=== PATIENT | male | born 1965 | race Caucasian/White ===

== ENCOUNTER 2020-02-26 17:55 | Outpatient (CLI) | payer MEDICARE, MEDICAID, SELFPAY ==
[2020-02-26 07:46] LABS: Hematocrit 43.2 % (42.0-52.0); Hemoglobin 14.4 g/dL (14.0-18.0); Mean Corpuscular HGB Conc 33.3 g/dl (32-36); Mean Corpuscular Hemoglobin 30.4 pg (26-34); Mean Corpuscular Volume 91.3 fl (80-100); Mean Platelet Volume 8.1 fl (7.4-10.4); Platelet Count Result 229 k/mm3 (150-375); Red Blood Count 4.73 M/mm3 (4.6-6.20); Red Cell Distribution Width 15.3 % (11.5-14.5); White Blood Count 5.5 K/mm3 (4.5-10.0)
[2020-02-26 07:54] LABS: Total Protein Urine Random 10 mg/dL
[2020-02-26 08:03] LABS: Albumin Level 4.2 g/dL (3.5-5.1); Anion Gap 11.7 mmol/L (7-16); Blood Urea Nitrogen 18 mg/dL (9-20); Calcium 8.9 mg/dL (8.4-10.2); Carbon Dioxide 31 mmol/L (22-30); Chloride 96 mmol/L (98-107); Estimated Glomerular Filt Rate 52; Glucose 149 mg/dL (75-110); Phosphorus 3.8 mg/dL (2.5-4.5); Potassium 4.7 mmol/L (3.4-5.0); Sodium 134 mmol/L (137-145)
[2020-02-26 08:04] LABS: Anion Gap 13.7 mmol/L (7-16); Blood Urea Nitrogen 18 mg/dL (9-20); Calcium 8.9 mg/dL (8.4-10.2); Carbon Dioxide 31 mmol/L (22-30); Chloride 96 mmol/L (98-107); Estimated Glomerular Filt Rate 52; Glucose 150 mg/dL (75-110); Potassium 4.7 mmol/L (3.4-5.0); Sodium 136 mmol/L (137-145)
[2020-02-26 08:32] LABS: Parathyroid Intact 68.6 pg/mL (7.5-53.5)
[2020-02-26 08:33] LABS: Prostate Specific Antigen 1.5 ng/mL (< OR = 4.0)
[2020-02-26 10:53] LABS: Vitamin D 25 Hydroxy 31.1 ng/mL
[2020-02-26 19:11] LABS: Hemoglobin A1C 6.4 % (<5.7)
== END 2020-02-26 17:56 | disposition home or self-care (01) ==
PROVIDERS: Family Provider Internal Medicine Cardiovascular Disease; PCP Internal Medicine; Visit Provider Nurse Practitioner
DX: E55.9 Vitamin D deficiency, unspecified (principal); R73.02 Impaired glucose tolerance (oral); I48.91 Unspecified atrial fibrillation; Z12.5 Encounter for screening for malignant neoplasm of prostate; I12.9 Hypertensive chronic kidney disease with stage 1 through stage 4 chronic kidney disease, or unspecified chronic kidney disease; N18.3 Chronic kidney disease, stage 3 (moderate)
CPT/HCPCS: 36415; 80048; 80069; 82040; 82306; 82570; 83036; 83970; 84100; 84153; 84156; 85027; G0103

== ENCOUNTER 2020-04-20 17:08 | Inpatient (IN) | payer MEDICARE, MEDICAID, SELFPAY ==
--- NOTE | ~2020-04-20 | MR_ITS ---
EXAMINATION: MR lumbar spine wo con DATE: 04/22/2020 17:11 INDICATION: Left leg pain and difficulty walking. TECHNIQUE: Magnetic resonance imaging (MRI) of the lumbar spine was performed without intravenous con trast. Sequences included sagittal T2-weighted FSE, sagittal T2-weighted FS FSE, sagittal T1-weighted FSE, and axial T2-weighted FSE. COMPARISON: Lumbar spine radiographs dated 04/08/2015 FINDINGS: 3 mm retrolisthesis L5 on S1. 1-2 mm retrolisthesis L2 on L3. Lumbar vertebral body heights are papo l. Minimal likely physiologic anterior wedging at T12. There are Schmorl's nodes along the inferior e ndplates of L1 and L2. Moderate to severe disc height loss at T11-T12, annular fissure and moderate d isc height loss with associated fibrovascular degenerative endplate changes at L2-L3. Mild to moderat e disc height loss also with annular fissure at L5-S1 and mild disc height loss at L1-L2 and L3-L4. T he conus medullaris terminates at L1. There is normal signal in the caudal spinal cord. Subcutaneous edema posterior to the lumbar spine. Paravertebral soft tissues are otherwise unremarkable. The follo wing disc levels are specifically discussed: T12-L1: Disc is minimally bulging. There is mild bilateral facet joint osteoarthritis. There is no ne ural foraminal stenosis. There is no central canal stenosis. L1-L2: Disc is mildly bulging. There is mild left and moderate right facet joint osteoarthritis. Ther e is no neural foraminal stenosis. There is mild central canal stenosis. L2-L3: Disc is bulging. There is moderate left and mild to moderate right facet joint osteoarthritis. There is mild bilateral neural foraminal stenosis. There is mild to moderate central canal stenosis. L3-L4: Disc is bulging. There is mild to moderate bilateral facet joint osteoarthritis. There is mild bilateral neural foraminal stenosis. There is mild central canal stenosis. L4-L5: Disc is bulging. There is severe bilateral facet joint osteoarthritis. There is mild bilateral neural foraminal stenosis. There is mild central canal stenosis and mild narrowing of the left later al recess. L5-S1: Disc is bulging and there is endplate osteophytes at the left foraminal zone. There is moderat e bilateral facet joint osteoarthritis. There is mild right and moderate left neural foraminal stenos is. There is mild central canal stenosis. IMPRESSION: 1. Moderate lumbar spondylosis with moderate stenosis at the left L5-S1 neural foramen. Reviewed, dictated and finalized at location A.
--- NOTE | ~2020-04-20 | US_ITS ---
EXAMINATION: US venous doppler [facility] DATE: 04/21/2020 14:02 INDICATION: Left thigh pain. TECHNIQUE: Grayscale ultrasound images without and with compression and Doppler ultrasound images of the bilateral lower extremity veins were obtained. COMPARISON: None. FINDINGS: The visualized portions of right common femoral vein, profunda (deep) femoral vein, femoral vein, pop liteal vein, peroneal veins, posterior tibial veins, and greater saphenous vein outflow are patent. The visualized portions of left common femoral vein, profunda femoral vein, femoral vein, popliteal v ein, peroneal veins, posterior tibial veins, and greater saphenous vein outflow are patent. IMPRESSION: 1. No deep venous thrombosis. Reviewed, dictated and finalized at location A.
--- NOTE | ~2020-04-20 | XR_ITS ---
EXAMINATION: XR femur LT min 2V DATE: 04/20/2020 18:34 INDICATION: Lateral left thigh pain and inability to bear weight. TECHNIQUE: Overlapping proximal and distal, AP and lateral views of the left femur were obtained. COMPARISON: None FINDINGS: Alignment is normal. No fracture. Joint spaces appear relatively preserved on nonweightbearing imagi ng. No right knee joint effusion. Multiple ossicles along the distal patellar tendon likely sequela o f prior trauma or childhood Mike-Schlatter's disease. Soft tissues are unremarkable. IMPRESSION: No acute osseous abnormality. Reviewed, dictated and finalized at location A.
--- NOTE | ~2020-04-20 | MR_ITS ---
EXAMINATION: MR femur LT wo con DATE: 04/22/2020 16:51 INDICATION: Left leg pain TECHNIQUE: Magnetic resonance imaging (MRI) of the left thigh/femur was performed without intravenous contrast. Sequences included axial, sagittal and coronal T1-weighted FSE and fluid sensitive FSE STI R. Contralateral right lower leg is included on the coronal images. COMPARISON: Radiographs dated 04/20/2020 FINDINGS: Magnetic field artifact associated with an intramedullary bryan with proximal and distal interlocking s crews along the right femoral diaphysis. Bone marrow signal is normal throughout. No fracture, reacti ve edema or pathologic marrow replacing process. There is symmetric muscle bulk with normal signal th roughout both thighs. Mild osteoarthritis at the left hip without evident left hip joint effusion. Si gnificant spatial distortion at the level of the knees which are too margin of the [id number] not diagnostically evaluated. Neurovascular structures appear unremarkable. No abnormal mass or fluid col lections identified. No pathologically enlarged inguinal lymphadenopathy. IMPRESSION: 1. Incidentally noted internal fixation at the right femur. Otherwise unremarkable study of the left thigh with no etiology identified for reported left thigh pain. Reviewed, dictated and finalized at location A. IMPRESSION: 1. Incidentally noted internal fixation at the right femur. Otherwise unremarka ble study of the left thigh with no etiology identified for reported left thigh pain.
[2020-04-20 17:57] VITALS: BP 138/99; PULSE 70; RESP 17; TEMP 36.6; O2SAT 99
[2020-04-20 20:47] VITALS: BP 153/103; PULSE 65; RESP 17; TEMP 36.6; O2SAT 97
[2020-04-20 22:42] VITALS: BP 151/85; PULSE 64; RESP 22; O2SAT 97
--- NOTE | 2020-04-20 22:48 | ED.LOWEXIN ---
HPI - Extremity Injury (Lower) General Chief Complaint: Extremity Injury, Lower Stated Complaint: left thigh pain Time Seen by Provider: 04/20/20 22:37 Source: patient Mode of arrival: EMS Limitations: no limitations History of Present Illness HPI Narrative: 55 years old white male presents with sudden onset of pain at the lateral side of left thigh, like cramps, 9-hour prior to arrival to the emergency room. Patient denies any trauma, did not take any pain medication because he does not have any at home, patient lives alone, came by ambulance. Patient on Xarelto for atrial fibrillation Patient denies any fever, chills, nausea, vomiting, abdominal pain, chest pain, shortness of breath, back pain. Patient reports pain gets worse if he puts weight on left lower extremity. Related Data Home Medications Medication Instructions Recorded Confirmed ergocalciferol (vitamin D2) 1,250 50,000 unit PO WEEKLY cap 02/20/20 04/08/20 mcg (50,000 unit) capsule famotidine [Pepcid] 40 mg PO BID 04/20/20 Allergies Allergy/AdvReac Type Severity Reaction Status Date / Time Penicillins Allergy Unknown Deadly Verified 04/20/20 23:25 Review of Systems Review of Systems: Narrative: CONSTITUTIONAL: Denies fever, chills, or sweats. EYES: Denies visual changes, redness, or discharge. ENT: Denies rhinorrhea, congestion, sore throat, or otalgia. CARDIOVASCULAR: Denies chest pain, palpitations, or edema. RESPIRATORY: Denies cough or dyspnea. GASTROINTESTINAL: Denies abdominal pain, nausea, vomiting, or diarrhea. GENITOURINARY: Denies dysuria or hematuria. SKIN: Denies rash or itching. MUSCULOSKELETAL: Denies back pain, joint pain, or myalgia. NEUROLOGIC: Denies headache, numbness, or weakness. PSYCHIATRIC: Denies anxiety or depression. [facility] Past Medical History Medical History Absent kidney Arthritis Asthma Atrial fibrillation BMI 45.0-49.9, adult Cancer of kidney Cerebral hemorrhage Chronic low back pain Clear cell carcinoma of right kidney Depressive disorder Essential hypertension History of cardioversion Hypertensive heart disease with heart failure Moderate persistent asthma Morbid obesity Myocardial infarction Post concussion syndrome Rosacea Shortness of breath Sleep apnea Surgical History Surgical History History of arthroplasty of right ankle History of cardiac catheterization History of nephrectomy Family History Family History Mother Family history of cardiovascular disease Patient's mother is in good health Father Family history of congestive heart failure Acute myocardial infarction Sibling Patient's sister is in good health Social History Social History Smoking status: Former smoker (chewed 2 cans a day- smoked 1 pack a week) Smoking end date: 07/24/96 Alcohol intake: current Gender identity (if verbalized by the patient): Male Exam Narrative: Exam Narrative: General appearance: Well-developed, well-nourished Skin: Normal color Head: Normocephalic, nontraumatic Eyes: Clear conjunctiva ENT: Oropharynx normal, ears normal, nose normal Neck: Supple, nontender Chest and respiratory: Airway patent, no respiratory distress, no accessory muscle use Heart: Regular rate/rhythm Abdomen: Soft, nontender, no organomegaly, quiet bowel sounds Vascular: Normal peripheral pulses, normal capillary refill. Musculoskeletal: Normal range of motion, nontender back, diffuse tenderness along the lateral side of left thigh, no bruises, no swelling, no contusion or rash. Neurologic: Alert and oriented ?3, [employer]FF[employer] is normal as tested, no gross motor deficit
[2020-04-20 23:05] VITALS: BP 119/63; PULSE 64; RESP 18; O2SAT 97
[2020-04-20 23:06] LABS: Basophils Absolute Auto 0.1 K/mm3 (0.0-0.1); Basophils Percent Auto 1.2 % (0.2-1.2); Eosinophils Absolute Auto 0.2 K/mm3 (0-0.3); Eosinophils Percent Auto 3.1 % (0-4.4); Hematocrit 42.2 % (42.0-52.0); Hemoglobin 14.4 g/dL (14.0-18.0); Immature Granulocyte Absolute 0.06 K/mm3 (0.00-0.031); Lymphocytes Absolute Auto 1.38 K/mm3 (0.9-3.2); Lymphocytes Percent Auto 23.7 % (18.3-44.2); Mean Corpuscular HGB Conc 34.1 g/dl (32-36); Mean Corpuscular Hemoglobin 31.7 pg (26-34); Mean Platelet Volume 7.8 fl (7.4-10.4); Monocytes Absolute Auto 0.9 K/mm3 (0.1-0.6); Monocytes Percent Auto 16.1 % (2.6-8.5); Neutrophils Absolute Auto 3.2 K/mm3 (1.3-6.7); Neutrophils Percent Auto 54.9 % (45.5-73.1); Platelet Count Result 229 k/mm3 (150-375); Red Blood Count 4.54 M/mm3 (4.6-6.20); Red Cell Distribution Width 14.9 % (11.5-14.5); White Blood Count 5.8 K/mm3 (4.5-10.0)
[2020-04-20 23:21] LABS: Alanine Aminotransferase 50 U/L (4-50); Albumin Level 4.3 g/dL (3.5-5.1); Alkaline Phosphatase 84 U/L (38-126); Anion Gap 11 mmol/L (8-16); Aspartate Amino Transferase 41 U/L (17-59); Bilirubin,Total 1.2 mg/dL (0.2-1.3); Blood Urea Nitrogen 18 mg/dL (9-20); Calcium 9.2 mg/dL (8.4-10.2); Carbon Dioxide 26 mmol/L (22-30); Chloride 99 mmol/L (98-107); Estimated CRCL calculation 99 ml/min; Estimated Glomerular Filt Rate > 60; Glucose 115 mg/dL (75-110); Magnesium 2.1 mg/dL (1.6-2.3); Potassium 4.3 mmol/L (3.4-5.0); Sodium 136 mmol/L (137-145)
[2020-04-21] VITALS (10 sets, daily range): BP systolic 130–150; BP diastolic 73–88; PULSE 59–96; RESP 18–22; TEMP 36.4–36.9; O2SAT 97–99; BMI 48.9
[2020-04-21] MEDS: HYDROcodone/acetaminophen (*CRX) 7.5-325 MG TABLET 1 TAB PO (00:13)
--- NOTE | 2020-04-21 01:45 | ADMGEN ---
This patient, Jack Gates Jr., was admitted to 3 [facility] Surg Room 320-01. Patient/family oriented to hospital policies and general routines including ID bracelet, bed and alarms, visiting hours, pain management, procedures, bathroom and other care routines, personal items, smoking policy, room service/diet, and visiting hours. Valuables list has been completed. Information on how to activate the Rapid Response Team has been discussed. Patient/Family are encouraged to report perceived risks to care and to ask questions if they do not understand what they are told or what they should do.
[2020-04-21] MEDS: AMIODARONE HCL 200 MG TABLET PO (08:40)
[2020-04-21] MEDS: amLODIPine BESYLATE 2.5 MG TABLET PO (08:41)
[2020-04-21] MEDS: FUROSEMIDE 40 MG TABLET PO (08:42)
[2020-04-21] MEDS: carvediloL 3.125 MG TABLET PO ×2 (08:42→20:08)
[2020-04-21] MEDS: RIVAROXABAN 20 MG TABLET PO (10:31)
[2020-04-21] MEDS: MONTELUKAST SODIUM 10 MG TABLET PO (17:08)
[2020-04-21] MEDS: lisinopriL 20 MG TABLET PO (17:08)
[2020-04-21] MEDS: FAMOTIDINE 20 MG TABLET 40 MG PO (17:08)
--- NOTE | 2020-04-21 17:31 | PM.IMHP ---
H&P: HPI History of Present Illness Date/Time: 04/21/20 17:31 Chief complaint: Left thigh pain, unable to manage working Narrative: Jack Gates Jr. is a 55 year old male morbidly obese somewhat mentally challenged he presented emergency department with a complaint left lateral thigh pain for about a 1 day, he states that he was at his granddaughter's birthday democrat he got up from sitting position and felt pain in his left leg he denies any trauma or injury, denies any strain, pain is worse with ambulation he is able to flex and extend his knee and hip, patient is on Xarelto for atrial fibrillation which is taking on a daily basis. he denies any complaint of chest pain or shortness of breath dizziness or palpitation. emergency department patient had x-ray of the left thigh which was negative for any bony injury, to further evaluate patient had a lower extremity venous Doppler is negative for DVT. patient was able to work with physical therapy, will apply warm compresses and monitor overnight Review of Systems Review of Systems: All systems reviewed & are unremarkable except as noted in HPI and below PMFSH Past Medical History Medical History Absent kidney Arthritis Asthma Atrial fibrillation BMI 45.0-49.9, adult Cancer of kidney Cerebral hemorrhage Chronic low back pain Clear cell carcinoma of right kidney Depressive disorder Essential hypertension History of cardioversion Hypertensive heart disease with heart failure Moderate persistent asthma Morbid obesity Myocardial infarction Post concussion syndrome Rosacea Shortness of breath Sleep apnea Surgical History Surgical History History of arthroplasty of right ankle History of cardiac catheterization History of nephrectomy Family History Family History Mother Family history of cardiovascular disease Patient's mother is in good health Father Family history of congestive heart failure Acute myocardial infarction Sibling Patient's sister is in good health Social History Social History (Updated 04/21/20 @ 01:48 by Ronald Bennett RN) Smoking status: Never smoker Second hand tobacco smoke exposure: No Smoking end date: 07/24/96 Alcohol intake: current Drinks per week: 7 Alcohol use details: Max 1 beer per day Substance use: never Substance use type: does not use Living arrangements: alone Occupation/Education: unemployed Gender identity (if verbalized by the patient): Male Sexual Orientation (if Verbalized by the Patient): Straight or Heterosexual Spiritual care concerns: No Agree to blood products: Yes Meds Home Medications and Allergies Home Medications Medication Instructions Recorded Confirmed Type albuterol sulfate 90 mcg/actuation 2 puff INHALATION Q4-6H PRN #8.5 gm 09/18/19 04/21/20 Rx aerosol inhaler carvedilol 3.125 mg tablet 3.125 mg PO Q12H #60 tablet 02/03/20 04/21/20 Rx amiodarone 200 mg tablet 200 mg PO DAILY #30 tablet 02/20/20 04/21/20 Rx amlodipine 2.5 mg tablet 2.5 mg PO DAILY #30 tablet 02/20/20 04/21/20 Rx ergocalciferol (vitamin D2) 1,250 50,000 unit PO WEEKLY cap 02/20/20 04/21/20 History mcg (50,000 unit) capsule metformin 500 mg tablet 500 mg PO DAILY #90 tablet 02/27/20 04/21/20 Rx budesonide-formoterol HFA 160 2 puff INHALATION Q12H #10.2 gm 03/26/20 04/21/20 Rx mcg-4.5 mcg/actuation aerosol inhaler hydrocodone 5 mg-acetaminophen 325 1 tablet PO Q6H PRN #120 tablet 03/31/20 04/21/20 Rx mg tablet famotidine [Pepcid] 40 mg PO QPM 04/20/20 04/21/20 History tramadol 50 mg PO Q4H PRN #20 tablet 04/20/20 Rx Xarelto 20 mg PO DAILY 04/21/20 04/21/20 History furosemide 40 mg PO DAILY 04/21/20 04/21/20 History lisinopril 20 mg PO QPM 04/21/20 04/21/20 History montelukast 10 mg PO QPM 04/21/20 04/21/20 History Allergies
[2020-04-21] MEDS: HYDROcodone/acetaminophen (*CRX) 5-325 MG TABLET 1 TAB PO (23:04)
[2020-04-22] VITALS (9 sets, daily range): BP systolic 118–142; BP diastolic 67–98; PULSE 50–72; RESP 14–22; TEMP 36.2–36.7; O2SAT 96–99
[2020-04-22 07:13] LABS: Basophils Absolute Auto 0.1 K/mm3 (0.0-0.1); Basophils Percent Auto 1.1 % (0.2-1.2); Eosinophils Absolute Auto 0.2 K/mm3 (0-0.3); Eosinophils Percent Auto 3.4 % (0-4.4); Hematocrit 40.6 % (42.0-52.0); Hemoglobin 13.6 g/dL (14.0-18.0); Immature Granulocyte Absolute 0.07 K/mm3 (0.00-0.031); Immature Granulocyte Percent A 1.5 % (0-0.5); Lymphocytes Absolute Auto 1.03 K/mm3 (0.9-3.2); Lymphocytes Percent Auto 22.2 % (18.3-44.2); Mean Corpuscular HGB Conc 33.5 g/dl (32-36); Mean Corpuscular Hemoglobin 31.6 pg (26-34); Mean Corpuscular Volume 94.4 fl (80-100); Mean Platelet Volume 8.4 fl (7.4-10.4); Monocytes Absolute Auto 0.8 K/mm3 (0.1-0.6); Neutrophils Absolute Auto 2.6 K/mm3 (1.3-6.7); Neutrophils Percent Auto 54.8 % (45.5-73.1); Platelet Count Result 223 k/mm3 (150-375); Red Cell Distribution Width 15.2 % (11.5-14.5); White Blood Count 4.7 K/mm3 (4.5-10.0)
[2020-04-22 07:26] LABS: Anion Gap 7 mmol/L (8-16); Blood Urea Nitrogen 20 mg/dL (9-20); Calcium 8.9 mg/dL (8.4-10.2); Carbon Dioxide 32 mmol/L (22-30); Chloride 95 mmol/L (98-107); Estimated CRCL calculation 99 ml/min; Estimated Glomerular Filt Rate > 60; Glucose 117 mg/dL (75-110); Potassium 4.5 mmol/L (3.4-5.0); Sodium 134 mmol/L (137-145)
[2020-04-22] MEDS: RIVAROXABAN 20 MG TABLET PO (08:23)
[2020-04-22] MEDS: amLODIPine BESYLATE 2.5 MG TABLET PO (08:23)
[2020-04-22] MEDS: AMIODARONE HCL 200 MG TABLET PO (08:23)
[2020-04-22] MEDS: ERGOCALCIFEROL 50,000 UNIT CAPSULE 50000 UNITS PO (08:24)
[2020-04-22] MEDS: carvediloL 3.125 MG TABLET PO ×2 (08:24→21:03)
[2020-04-22] MEDS: FUROSEMIDE 40 MG TABLET PO (08:24)
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
[2020-04-22] MEDS: HYDROcodone/acetaminophen (*CRX) 5-325 MG TABLET 1 TAB PO (14:19)
--- NOTE | 2020-04-22 14:23 | PM.IMPN ---
Progress Note: A&P Assessment and Plan (1) Left thigh pain: Code(s): M79.652 - Pain in left thigh Status: Acute Assessment and Plan: 04/22/20 14:23 Jack Gates Jr. is a 55 year old male morbidly obese somewhat mentally challenged he presented emergency department with a complaint left lateral thigh pain for about a 1 day, he states that he was at his granddaughter's birthday constitution party he got up from sitting position and felt pain in his left leg, he denies any trauma or injury, denies any strain, pain is worse with ambulation he is able to flex and extend his knee and hip, patient is on Xarelto for atrial fibrillation which is taking on a daily basis. he denies any complaint of chest pain or shortness of breath dizziness or palpitation. emergency department patient had x-ray of the left thigh which was negative for any bony injury, to further evaluate patient had a lower extremity venous Doppler is negative for DVT. on 04/21 I spoke with patient sister who is a nurse and POA for the patient as patient is MR, stated due to his mental condition patient is a poor historian, Today on 04/22 patient stats pain in the left leg better however he was not able to ambulate more than 10 ft to further evaluate will do MRI of left leg and hip as well as lumbar spine and further recommendations to follow, will increase patient pain medication to help him with pain when ambulating. (2) PAF (paroxysmal atrial fibrillation): Code(s): I48.0 - Paroxysmal atrial fibrillation Status: Acute Assessment and Plan: rate rate is controlled he is on Xarelto (3) Essential hypertension: Code(s): I10 - Essential (primary) hypertension Status: Acute Assessment and Plan: will continue home regimen and monitor Subjective Date/time seen: 04/22/20 14:23 Jack Gates Jr. is a 55 year old male morbidly obese somewhat mentally challenged he presented emergency department with a complaint left lateral thigh pain for about a 1 day, he states that he was at his granddaughter's birthday constitution party he got up from sitting position and felt pain in his left leg, he denies any trauma or injury, denies any strain, pain is worse with ambulation he is able to flex and extend his knee and hip, patient is on Xarelto for atrial fibrillation which is taking on a daily basis. he denies any complaint of chest pain or shortness of breath dizziness or palpitation. emergency department patient had x-ray of the left thigh which was negative for any bony injury, to further evaluate patient had a lower extremity venous Doppler is negative for DVT. on 04/21 I spoke with patient sister who is a nurse and POA for the patient as patient is , stated due to his mental condition patient is a poor historian, Today on 04/22 patient stats pain in the left leg better however he was not able to ambulate more than 10 ft to further evaluate will do MRI of left leg and hip as well as lumbar spine and further recommendations to follow, will increase patient pain medication to help him with pain when ambulating. Review of Systems Review of Systems: All systems reviewed & are unremarkable except as noted in HPI and below Exam Const: General: comfortable and no acute distress HENMT: General nose exam: Normal nares present Eyes: Sclera: sclerae normal Neck: Neck: supple Resp: Effort & Inspection: normal respiratory effort Auscultation: clear to auscultation bilaterally Cardio: Rate: regular rate Rhythm: regular rhythm Skin: General skin exam: normal color and no rashes or lesions noted Neuro: Speech: normal speech Sensory Exam: normal sensation Extrem: General: normal to inspection Other: patient is able to flex and extend his left knee and hip, left thigh on lateral aspect lump his felt, its tender, there is no erythema,or sign of trama, Psych: Affect: Anxious affect present Objective Data Vital Signs Vital Signs: Vital Signs - 24 hr
[2020-04-22] MEDS: HYDROcodone/acetaminophen (*CRX) 5-325 MG TABLET 2 TAB PO ×2 (15:15→23:59)
--- NOTE | 2020-04-22 15:26 | PCOTNOTE ---
Attempted OT evaluation. Per nurse patient is leaving for MRI soon, please hold evaluation until after test completed. Will follow.
--- NOTE | 2020-04-22 16:02 | PC.NURSE ---
to MRI per w/c
[2020-04-22] MEDS: lisinopriL 20 MG TABLET PO (17:15)
[2020-04-22] MEDS: MONTELUKAST SODIUM 10 MG TABLET PO (17:15)
[2020-04-22] MEDS: FAMOTIDINE 20 MG TABLET 40 MG PO (17:15)
--- NOTE | 2020-04-22 17:15 | PC.NURSE ---
patient returned to floor from mri
[2020-04-23 02:00] VITALS: PULSE 54; O2SAT 98
[2020-04-23 05:46] VITALS: BP 116/77; PULSE 52; RESP 20; TEMP 36.7; O2SAT 96
[2020-04-23 06:26] LABS: Hematocrit 39.6 % (42.0-52.0); Hemoglobin 13.7 g/dL (14.0-18.0); Mean Corpuscular HGB Conc 34.6 g/dl (32-36); Mean Corpuscular Hemoglobin 31.5 pg (26-34); Mean Platelet Volume 8.1 fl (7.4-10.4); Platelet Count Result 209 k/mm3 (150-375); Red Blood Count 4.35 M/mm3 (4.6-6.20); Red Cell Distribution Width 14.5 % (11.5-14.5); White Blood Count 5.4 K/mm3 (4.5-10.0)
[2020-04-23 06:41] LABS: Anion Gap 10 mmol/L (8-16); Blood Urea Nitrogen 18 mg/dL (9-20); Calcium 8.4 mg/dL (8.4-10.2); Carbon Dioxide 29 mmol/L (22-30); Chloride 91 mmol/L (98-107); Estimated CRCL calculation 99 ml/min; Estimated Glomerular Filt Rate > 60; Glucose 104 mg/dL (75-110); Potassium 4.6 mmol/L (3.4-5.0); Sodium 130 mmol/L (137-145)
[2020-04-23 08:00] VITALS: PULSE 68; RESP 20; O2SAT 100
[2020-04-23] MEDS: amLODIPine BESYLATE 2.5 MG TABLET PO (10:24)
[2020-04-23] MEDS: carvediloL 3.125 MG TABLET PO (10:24)
[2020-04-23] MEDS: RIVAROXABAN 20 MG TABLET PO (10:24)
[2020-04-23] MEDS: FUROSEMIDE 40 MG TABLET PO (10:25)
[2020-04-23] MEDS: AMIODARONE HCL 200 MG TABLET PO (10:25)
--- NOTE | 2020-04-23 12:34 | PM.DS ---
DS: Admitting Diagnosis Admitting Diagnosis Admitting Diagnosis: Left thigh pain, unable to manage working DS: Discharge Diagnosis Discharge Diagnosis (1) Left thigh pain: Code(s): M79.652 - Pain in left thigh Status: Acute Assessment and Plan: 04/22/20 14:23 Jack Gates Jr. is a 55 year old male morbidly obese somewhat mentally challenged he presented emergency department with a complaint left lateral thigh pain for about a 1 day, he states that he was at his granddaughter's birthday democrat he got up from sitting position and felt pain in his left leg, he denies any trauma or injury, denies any strain, pain is worse with ambulation he is able to flex and extend his knee and hip, patient is on Xarelto for atrial fibrillation which is taking on a daily basis. he denies any complaint of chest pain or shortness of breath dizziness or palpitation. emergency department patient had x-ray of the left thigh which was negative for any bony injury, to further evaluate patient had a lower extremity venous Doppler is negative for DVT. on 04/21 I spoke with patient sister who is a nurse and POA for the patient as patient is MR, stated due to his mental condition patient is a poor historian, Today on 04/22 patient stats pain in the left leg better however he was not able to ambulate more than 10 ft to further evaluate will do MRI of left leg and hip as well as lumbar spine and further recommendations to follow, will increase patient pain medication to help him with pain when ambulating. (2) PAF (paroxysmal atrial fibrillation): Code(s): I48.0 - Paroxysmal atrial fibrillation Status: Acute Assessment and Plan: rate rate is controlled he is on Xarelto (3) Essential hypertension: Code(s): I10 - Essential (primary) hypertension Status: Acute Assessment and Plan: will continue home regimen and monitor DS: Summary Hospital Course Reason for hospitalization: Chief complaint: Left thigh pain, unable to manage working Narrative: Jack Gates Jr. is a 55 year old male morbidly obese somewhat mentally challenged he presented emergency department with a complaint left lateral thigh pain for about a 1 day, he states that he was at his granddaughter's birthday democrat he got up from sitting position and felt pain in his left leg he denies any trauma or injury, denies any strain, pain is worse with ambulation he is able to flex and extend his knee and hip, patient is on Xarelto for atrial fibrillation which is taking on a daily basis. he denies any complaint of chest pain or shortness of breath dizziness or palpitation. emergency department patient had x-ray of the left thigh which was negative for any bony injury, to further evaluate patient had a lower extremity venous Doppler is negative for DVT. patient was able to work with physical therapy, will apply warm compresses and monitor overnight Hospital Course: Jack Gates Jr. is a 55 year old male morbidly obese somewhat mentally challenged he presented emergency department with a complaint left lateral thigh pain for about a 1 day, he states that he was at his granddaughter's birthday democrat he got up from sitting position and felt pain in his left leg, he denies any trauma or injury, denies any strain, pain is worse with ambulation he is able to flex and extend his knee and hip, patient is on Xarelto for atrial fibrillation which is taking on a daily basis. he denies any complaint of chest pain or shortness of breath dizziness or palpitation. emergency department patient had x-ray of the left thigh which was negative for any bony injury, to further evaluate patient had a lower extremity venous Doppler is negative for DVT. on 04/21 I spoke with patient sister who is a nurse and POA for the patient as patient is MR, stated due to his mental condition patient is a poor historian, on 04/22 patient stats pain in the left leg better however he was not able to ambu
[2020-04-23] MEDS: HYDROcodone/acetaminophen (*CRX) 5-325 MG TABLET 2 TAB PO ×2 (13:09→17:24)
[2020-04-23 14:00] VITALS: BP 119/80; PULSE 68; RESP 20; TEMP 36.6; O2SAT 100
[2020-04-23] MEDS: FAMOTIDINE 20 MG TABLET 40 MG PO (17:06)
[2020-04-23] MEDS: lisinopriL 20 MG TABLET PO (17:07)
[2020-04-23] MEDS: MONTELUKAST SODIUM 10 MG TABLET PO (17:08)
== END 2020-04-23 18:01 | disposition home or self-care (01) | DRG 537 ==
LOC: ANHED 04-21 00:09 → ANH3MEDSUR 04-21 00:45
PROVIDERS: Admitting Provider Family Medicine; Emergency Provider Emergency Medicine; PCP Internal Medicine; Visit Provider Family Medicine
DX: S76.112A Strain of left quadriceps muscle, fascia and tendon, initial encounter (principal); Z68.42 Body mass index [BMI] 45.0-49.9, adult; Z23 Encounter for immunization; I11.0 Hypertensive heart disease with heart failure; I50.9 Heart failure, unspecified; I48.0 Paroxysmal atrial fibrillation; E66.01 Morbid (severe) obesity due to excess calories; M19.90 Unspecified osteoarthritis, unspecified site; F32.9 Major depressive disorder, single episode, unspecified; G47.30 Sleep apnea, unspecified; L71.9 Rosacea, unspecified; J45.30 Mild persistent asthma, uncomplicated; M47.896 Other spondylosis, lumbar region; Z96.661 Presence of right artificial ankle joint; F78 Other intellectual disabilities; F07.81 Postconcussional syndrome; Z90.5 Acquired absence of kidney; Z79.01 Long term (current) use of anticoagulants; I25.2 Old myocardial infarction; Z85.528 Personal history of other malignant neoplasm of kidney; Z87.891 Personal history of nicotine dependence; R62.7 Adult failure to thrive; X58.XXXA Exposure to other specified factors, initial encounter
CPT/HCPCS: 36415; 72148; 73552; 73721; 80048; 80053; 83735; 85025; 85027; 90471; 90653; 93970; 94640; 97110; 97116; 97161; 97165; 99285; A9270; G0008; G0378

== ENCOUNTER 2020-05-24 10:36 | Emergency (ER) | payer MEDICARE, MEDICAID, SELFPAY ==
--- NOTE | ~2020-05-24 | US_ITS ---
EXAMINATION: US venous doppler [facility] DATE: 05/24/2020 12:14 INDICATION: Left lower limb pain TECHNIQUE: Gates scale images without and with compression and Doppler images of the left lower extrem ity veins were obtained. COMPARISON: 04/21/2020 FINDINGS: The left common femoral vein, profunda femoral vein, femoral vein, popliteal vein, peroneal trunk, posterior tibial veins, and greater saphenous vein are patent. IMPRESSION: 1. Patent left lower extremity veins. No evidence of deep venous thrombosis. Reviewed, dictated and finalized at location A. ART DIRECTOR
--- NOTE | ~2020-05-24 | CT_ITS ---
EXAMINATION: CT lumbar spine w con DATE: 05/24/2020 13:06 INDICATION: Left leg pain TECHNIQUE: Computed tomography (CT) of the lumbar spine was performed with 100 cc of Omnipaque 350 in travenous contrast. The dose-length product (DLP) was 1524.38 mGy-cm. Iterative reconstruction was us ed. COMPARISON: MRI, 04/22/[address] dated 08/01/2018 FINDINGS: There are 3 mm of stable retrolisthesis L2 on L3 and L5 on S1. There is moderate loss of in tervertebral disc space height at L1-2, L2-3, and L5-S1. The vertebral body heights are normal. There is no fracture. Severe facet osteoarthritis is noted in the lower lumbar spine. The right kidney is surgically absent. No abnormal enhancement is present. IMPRESSION: 1. Moderate lumbar spondylosis without acute findings or significant interval change. Reviewed, dictated and finalized at location A. DENT SERVICES DIRECTOR
[2020-05-24 10:32] VITALS: BP 124/72; PULSE 68; RESP 16; TEMP 36.8; O2SAT 99
[2020-05-24 10:59] VITALS: BP 109/60; PULSE 67; RESP 18; O2SAT 99
--- NOTE | 2020-05-24 11:08 | ED.GENADULT ---
HPI - General Adult General Chief complaint: Extremity Injury, Lower <MERRY Faith Last Filed: 05/24/20 13:57> Stated complaint: thigh pain <MERRY Faith Last Filed: 05/24/20 13:57> Time Seen by Provider: 05/24/20 10:40 <MERRY Faith Last Filed: 05/24/20 13:57> Source: patient and family <MERRY Faith Last Filed: 05/24/20 13:57> Mode of arrival: EMS <MERRY Faith Last Filed: 05/24/20 13:57> Limitations: no limitations <MERRY Faith Last Filed: 05/24/20 13:57> History of Present Illness HPI narrative: Patient is a 55-year-old male who presents with numbness of the left leg with pain to the left thigh has history of chronic pain to the left thigh takes home narcotics managed by primary care denies injury or trauma patient was started on a muscle relaxer that was new yesterday notes that now starting last night he began to have tingling in the leg patient denies any loss of function on arrival is in no distress notes minimal pain denies back pain injury trauma or illness <MERRY Faith Last Filed: 05/24/20 13:57> Related Data Home medications: Home Medications Medication Instructions Recorded Confirmed famotidine [Pepcid] 40 mg PO QPM 04/20/20 05/21/20 Xarelto 20 mg PO DAILY 04/21/20 05/21/20 furosemide 40 mg PO DAILY 04/21/20 05/21/20 lisinopril 20 mg PO QPM 04/21/20 05/21/20 montelukast 10 mg PO QPM 04/21/20 05/21/20 baclofen 20 mg PO DAILY 05/24/20 hydrocodone-acetaminophen 1 tablet PO Q6H 05/24/20 <MERRY Faith Last Filed: 05/24/20 13:57> Allergies/adverse reactions: Allergies Allergy/AdvReac Type Severity Reaction Status Date / Time Penicillins Allergy Unknown Deadly Verified 05/24/20 11:04 <MERRY Faith Last Filed: 05/24/20 13:57> Review of Systems Review of Systems: All systems reviewed & are unremarkable except as noted in HPI and below <Navneet Khan PA-C - Last Filed: 05/24/20 13:57> [facility] Past Medical History Medical History: Medical History (Updated 05/24/20 @ 13:42 by Navneet Khan PA-C) Absent kidney Arthritis Asthma Atrial fibrillation BMI 45.0-49.9, adult Cancer of kidney Cerebral hemorrhage Chronic low back pain Clear cell carcinoma of right kidney Depressive disorder Essential hypertension History of cardioversion Hypertensive heart disease with heart failure Moderate persistent asthma Morbid obesity Myocardial infarction Post concussion syndrome Rosacea Shortness of breath Sleep apnea <Navneet Khan PA-C - Last Filed: 05/24/20 13:57> Surgical History Surgical History: Surgical History History of arthroplasty of right ankle History of cardiac catheterization History of nephrectomy <Navneet Khan PA-C - Last Filed: 05/24/20 13:57> Family History Family History: Family History Mother Family history of cardiovascular disease Patient's mother is in good health Father Family history of congestive heart failure Acute myocardial infarction Sibling Patient's sister is in good health <Navneet Khan PA-C - Last Filed: 05/24/20 13:57> Social History Social History: Social History Smoking status: Former smoker Second hand tobacco smoke exposure: No Smoking end date: 07/24/96 Alcohol intake: current Drinks per week: 7 Substance use: never Substance use type: does not use Gender identity (if verbalized by the patient): Male Spiritual care concerns: No Agree to blood products: Yes <Navneet Khna PA-C - Last Filed: 05/24/20 13:57> Exam Narrative: Exam Narrative: GENERAL: Well-appearing, obese, and in no acute distress. HEAD: Normocephalic, atraumatic. EYES: PERRLA and EOMI. ENT: N
[2020-05-24 11:13] LABS: Basophils Absolute Auto 0.1 K/mm3 (0.0-0.1); Basophils Percent Auto 1.1 % (0.2-1.2); Eosinophils Absolute Auto 0.2 K/mm3 (0-0.3); Eosinophils Percent Auto 2.6 % (0-4.4); Hematocrit 43.1 % (42.0-52.0); Hemoglobin 14.7 g/dL (14.0-18.0); Immature Granulocyte Absolute 0.09 K/mm3 (0.00-0.031); Immature Granulocyte Percent A 1.6 % (0-0.5); Lymphocytes Absolute Auto 1.45 K/mm3 (0.9-3.2); Lymphocytes Percent Auto 25.6 % (18.3-44.2); Mean Corpuscular HGB Conc 34.1 g/dl (32-36); Mean Corpuscular Hemoglobin 31.7 pg (26-34); Mean Corpuscular Volume 92.9 fl (80-100); Mean Platelet Volume 9.5 fl (7.4-10.4); Monocytes Percent Auto 18.2 % (2.6-8.5); Neutrophils Absolute Auto 2.9 K/mm3 (1.3-6.7); Neutrophils Percent Auto 50.9 % (45.5-73.1); Platelet Count Result 319 k/mm3 (150-375); Red Blood Count 4.64 M/mm3 (4.6-6.20); Red Cell Distribution Width 14.2 % (11.5-14.5); White Blood Count 5.7 K/mm3 (4.5-10.0)
[2020-05-24 12:33] LABS: Anion Gap 7 mmol/L (8-16); Blood Urea Nitrogen 26 mg/dL (9-20); CRP 1.9 mg/dL (<1.0); Calcium 9.2 mg/dL (8.4-10.2); Carbon Dioxide 29 mmol/L (22-30); Chloride 101 mmol/L (98-107); Estimated CRCL calculation 83 ml/min; Estimated Glomerular Filt Rate 52; Glucose 115 mg/dL (75-110); Potassium 4.7 mmol/L (3.4-5.0); Sodium 137 mmol/L (137-145)
[2020-05-24] MEDS: SODIUM CHLORIDE 0.9% IV 1,000 ML 999 ML IV CONT (13:42)
[2020-05-24 14:03] VITALS: BP 128/68; PULSE 68; RESP 14; O2SAT 98
== END 2020-05-24 15:05 | disposition home or self-care (01) ==
PROVIDERS: Emergency Medicine Emergency Medical Services; Emergency Provider General Practice; PCP Internal Medicine
DX: I48.91 Unspecified atrial fibrillation (principal); E66.01 Morbid (severe) obesity due to excess calories; Z68.42 Body mass index [BMI] 45.0-49.9, adult; I25.10 Atherosclerotic heart disease of native coronary artery without angina pectoris; G47.30 Sleep apnea, unspecified; I11.0 Hypertensive heart disease with heart failure; I50.9 Heart failure, unspecified; J45.20 Mild intermittent asthma, uncomplicated; Z79.01 Long term (current) use of anticoagulants; Z85.528 Personal history of other malignant neoplasm of kidney
CPT/HCPCS: 36415; 72132; 80048; 85025; 86140; 93971; 96365; 99284; J0131; J7030; Q9967

== ENCOUNTER → 2020-06-04 17:57 | Outpatient (CLI) | payer MEDICARE, MEDICAID, SELFPAY ==
--- NOTE | ~2020-06-04 | MR_ITS ---
EXAMINATION: MR lumbar spine wo con DATE: 06/04/2020 18:50 INDICATION: Low back pain. Anesthesia of skin. TECHNIQUE: Magnetic resonance imaging (MRI) of the lumbar spine was performed without intravenous con trast. Sequences included sagittal T2-weighted FSE, sagittal T2-weighted FS FSE, sagittal T1-weighted FSE, and axial T2-weighted FSE. COMPARISON: Lumbar spine MRI 04/22/2020, CT 05/24/2020 FINDINGS: There is 4 degrees levocurvature of thoracolumbar spine. There are Schmorl's nodes from T12 -L1 through L2-L3. There is moderately decreased disc height at L2-L3, mildly decreased disc height a t L3-L4, and severely decreased disc height at L5-S1. The distal spinal cord signal intensity is norm al. The conus medullaris is at L1. The following disc levels are specifically discussed: L1-L2: The disc is mildly bulging. There is mild bilateral facet joint osteoarthritis. There is mild bilateral neural foraminal stenosis. There is mild central canal stenosis. L2-L3: The disc is bulging as an annular fissure. There is moderate right and mild left facet joint o steoarthritis. There is mild bilateral neural foraminal stenosis. There is mild central canal stenosi s. L3-L4: The disc is bulging and has an annular fissure. There is mild bilateral facet joint osteoarthr itis. There is mild bilateral neural foraminal stenosis. There is mild central canal stenosis. L4-L5: The disc is bulging. There is severe bilateral facet joint osteoarthritis. There is mild bilat eral neural foraminal stenosis. There is mild central canal stenosis. L5-S1: The disc is bulging and has an annular fissure. There is moderate right and mild left facet priti int osteoarthritis. There is mild right and moderate left neural foraminal stenosis. There is mild ce ntral canal stenosis. IMPRESSION: 1. Severe lumbar spondylosis, stable from 04/22/2020. Reviewed, dictated and finalized at location A. ZZA ARCHITECT
== END ==
PROVIDERS: PCP Internal Medicine; Visit Provider Internal Medicine
DX: M79.652 Pain in left thigh (principal); R20.0 Anesthesia of skin; M47.896 Other spondylosis, lumbar region
CPT/HCPCS: 72148

== ENCOUNTER 2020-07-15 09:30 | Outpatient (RCR) | payer MEDICARE, MEDICAID, SELFPAY ==
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
--- NOTE | 2020-06-24 10:41 | PTOPEVAL ---
PHYSICAL THERAPY RE-EVALUATION AND UPDATED PLAN OF CARE 06-24-2020 Refer to the clinical summary below, for comparison from today to the initial evaluation. PT is to continue treatment 2x/week for 3 weeks. Thank you for referring Jack Espinoza Kody Garcia to [facility].? Please review, sign, date and return this updated plan of care [facility]. I agree with and certify that the following plan of care is medically necessary. Referring Physician Date Attending Provider: Serafin Mathis DO *PT Outpatient Re-Evaluation Document 06/24/20 10:00 ANN (Rec: 06/24/20 10:41 ANN [id number]) Subjective Information Jack states: have improved; Query Text:As Reported By Patient/ pain still hits and leg cramps Family - not sure why, can be just laying in bed not doing anything; do the exercises sometimes, they seem to help some; today is first time not using the wheeled walker and using the cane; Pain Assessment Timing of Pain Assessment Timing of Pain Assessment Assessment Pain Scale Pain Scale Used Numeric (1 - 10) Self Report Pain Assessment Right Hip(s) Reported Pain Level 3 Radicular Pain Location posterior hip and low back-- throbbing Pain Frequency Chronic,Continuous Left Leg(s) Reported Pain Level 2 Pain Frequency Acute,Continuous Lowest Pain Intensity 2 Greatest Pain Intensity 8 Other Pain Aggravating Factors with sleeping awaken 1x/night due to pain Pain Score Pain Score 3,2: Self Report Interventions Used Interventions Used By Clinicians Exercise Pain Relief Interventions Used By Heat,Ice,Inactivity/Rest, Patient Medication,Position Change Cervical and Lumbar ROM Lumbar ROM Lumbar Comments standing trunk flexion- hands to knees- tight in R hip; extension WNL- tightens up in back; side bend to R Pinch on R side back/L no issues Lower Extremity Range of Motion General Lower Extremity Range of Motion Gross Lower Extremity Range of Motion supine: hamstring stretch with Comments SLR R 50'/ L 45'; increase pain with L hip flexion and IR motions, in anterior thigh; Lower Extremity Muscle Strength Testing General Lower Extremity Strength Gross Lower Extremity Strength supine L LE: SLR x 25 reps; bridge x 25 reps; supine/sit indep without pain; Posture Posture Standing Position
--- NOTE | 2020-07-15 09:57 | PTOPEVAL ---
PHYSICAL THERAPY DISCHARGE 07-15-2020 Refer to the clinical summary below for his comparison to the last reevaluation. The goals were achieved except walking distance with 2 minute walk test and L hip IR increase pain and decreased ROM. Thank you for referring Jack Espinoza Kody Garcia to [facility].? Please review, sign, date and return this discharge KRYSTIN. I agree with and certify that the following plan of care is medically necessary. Referring Physician Date Attending Provider: Serafin Mathis DO *PT Outpatient Discharge Document 07/15/20 09:20 ANN (Rec: 07/15/20 09:57 ANN [id number]) Subjective Information Jack reports: back does not Query Text:As Reported By Patient/ hurt; pain in L knee- take Family pain pill before bedtime to sleep due to knee pain; sleep good- do not wake up from pain; use cane when go out, but not in my apartment; at home, is doing all of his usual things; doing his exercises at home; Pain Assessment Timing of Pain Assessment Timing of Pain Assessment Assessment Self Report Self Report Pain Level 0 Pain Score Pain Score 0: Self Report Additional Pain Score Comments pain in L knee 1-6/10; Lower Extremity Range of Motion General Lower Extremity Range of Motion Gross Lower Extremity Range of Motion supine: hamstring stretch/ SLR Comments R & L 60'; supine R hip flexion to 100', IR 15', ER--without pain supine L hip flexion 100', IR 5'- increase pain and ER- without pain Lower Extremity Muscle Strength Testing General Lower Extremity Strength Gross Lower Extremity Strength functional strength: standing with 1 UE support: R & L: hip abduction, hip flexion, knee flexion x 20 reps; Transfer Assessment Bed Transfer Assessment Sit to Stand Bed Transfer Ability Independent Chair Transfer Assessment Sit to Stand Chair Transfer Ability Independent Gait Assessment 2 Minute Walk Total Distance Walked (feet) 325 2 Minute Walk Gait Speed Score (feet/ 2.70 second) Number of Breaks Required 0 2 Minute Walk Test Comments with cane; wide base of support, decreased WB on L LE; Safety Assessment Patient Safety Factors Affecting Safety No Concerns Rehab Teaching Rehab Teaching Teaching Topic Rehab Teaching Topic Components Exercise,Home Program As Pertains To Plan of Care Discus
== END 2020-07-16 07:18 | disposition home or self-care (01) ==
LOC: ANHPT 09:30
PROVIDERS: PCP Internal Medicine; Referring Provider Internal Medicine; Visit Provider Internal Medicine
DX: M79.652 Pain in left thigh (principal)
CPT/HCPCS: 97110; 97140; 97161

== ENCOUNTER 2021-03-01 06:49 | Outpatient (CLI) | payer MEDICARE, MEDICAID, SELFPAY ==
[2021-03-01 07:28] LABS: Total Protein Urine Random 10 mg/dL
[2021-03-01 07:30] LABS: Anion Gap 7 mmol/L (8-16); Blood Urea Nitrogen 14 mg/dL (9-20); Calcium 9.5 mg/dL (8.4-10.2); Carbon Dioxide 25 mmol/L (22-30); Chloride 102 mmol/L (98-107); Estimated Glomerular Filt Rate > 60; Glucose 119 mg/dL (65-110); Phosphorus 4.2 mg/dL (2.5-4.5); Sodium 134 mmol/L (137-145)
[2021-03-01 07:31] LABS: Alanine Aminotransferase 113 U/L (4-50); Alkaline Phosphatase 84 U/L (38-126); Anion Gap 8 mmol/L (8-16); Aspartate Amino Transferase 86 U/L (17-59); Bilirubin,Total 1.2 mg/dL (0.2-1.3); Blood Urea Nitrogen 13 mg/dL (9-20); Calcium 9.4 mg/dL (8.4-10.2); Carbon Dioxide 26 mmol/L (22-30); Chloride 98 mmol/L (98-107); Cholesterol 178 mg/dL (0-200); Estimated Glomerular Filt Rate > 60; Glucose 118 mg/dL (65-110); HDL Direct 35 mg/dL; Potassium 4.9 mmol/L (3.4-5.0); Sodium 132 mmol/L (137-145); Triglycerides 103 mg/dL (<150)
[2021-03-01 07:42] LABS: LDL Cholesterol Direct 108 mg/dL
[2021-03-01 08:18] LABS: Prostate Specific Antigen 0.5 ng/mL (< OR = 4.0)
[2021-03-01 17:53] LABS: Creatinine Urine 140.2 mg/dL; Ur Ttl Prot Creatinine Ratio 0.07 mg/mg (0-0.20)
== END 2021-03-01 06:50 | disposition home or self-care (01) ==
PROVIDERS: PCP Internal Medicine; Visit Provider Internal Medicine Nephrology
DX: E78.5 Hyperlipidemia, unspecified (principal); N18.30 Chronic kidney disease, stage 3 unspecified; Z12.5 Encounter for screening for malignant neoplasm of prostate; I10 Essential (primary) hypertension
CPT/HCPCS: 36415; 80053; 80061; 80069; 81050; 82570; 84153; 84156; G0103

== ENCOUNTER 2021-05-21 09:00 | Outpatient (RCR) | payer MEDICARE, MEDICAID, SELFPAY ==
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
--- NOTE | 2021-05-21 09:39 | PTOPEVAL ---
PHYSICAL THERAPY DISCHARGE 05-21-21 Refer to the clinical summary below for his status today compared to the initial evaluation. The goals were met and he will be discharged from PT at this time. Thank you for referring Jack Espinoza Kody Garcia to [facility].? Please review, sign, date and return this Discharge KRYSTIN. I agree with and certify that the following plan of care is medically necessary. Referring Physician Date Attending Provider: Serafin Mathis, document 05/21/21 09:00 ANN (Rec: 05/21/21 09:39 ANN [id number]) Assessment Status Discharge Subjective Information Jack reports: have lost 12# Query Text:As Reported By Patient/ in the past month; continue to Family go to gym and do exercises- water exercises, ride bike; doing better and agrees to discharge from PT; Pain Assessment Timing of Pain Assessment Timing of Pain Assessment Assessment Pain Scale Pain Scale Used Numeric (1 - 10) Self Report Pain Assessment Left Thigh(s) Reported Pain Level 0 Pain Frequency Chronic,Intermittent Lowest Pain Intensity 0 Greatest Pain Intensity 4 Pain Score Pain Score 0: Self Report Additional Pain Score Comments knee pain rating 3/10, wearing knee velcro compression brace and it helps stability and pain Interventions Used Interventions Used By Clinicians Education,Exercise Lower Extremity Range of Motion General Lower Extremity Range of Motion Gross Lower Extremity Range of Motion supine hamstring flexibiilty Comments with SLR: R 70'/ L 70' without pain supine L hip flexion, IR and ER ranges without an increase in pain Lower Extremity Muscle Strength Testing General Lower Extremity Strength Gross Lower Extremity Strength - standing: B PF, R and L hip abduction, hip flexion, hip extension with 1 UE hold x 20 reps; - supine L SLR x 47 reps; - leg press B 120# x 20 reps; verbal review of HEP: continues to perform 1-2 x/day , walking outside for fitness 2-3 x/day; going to fitness center for water exercises and weight equipment; Posture Posture Standing Position Posture Evaluation View Posterior Head/C-Spine Posture Forward Head Thoracic Spine Posture Fl
== END 2021-05-24 17:38 | disposition home or self-care (01) ==
LOC: ANHPT 09:00
PROVIDERS: PCP Internal Medicine; Visit Provider Internal Medicine
DX: M79.652 Pain in left thigh (principal)
CPT/HCPCS: 97014; 97110; 97161; G0283

== ENCOUNTER 2021-07-25 06:49 | Emergency (ER) | payer MEDICARE, MEDICAID, SELFPAY ==
--- NOTE | ~2021-07-25 | XR_ITS ---
EXAMINATION: XR hip LT 2V w AP pelvis EXAM DATE: 07/25/2021 07:33 INDICATION: Fall, left hip pain. TECHNIQUE: Left hip frontal, 'frog leg' projections for interpretation. Compare Comparison is made to prior examination from 04/20/2020. FINDINGS: Smooth left hip femoral head contour, no radiographic evidence of avascular necrosis. Ther e are no acute hip or pelvic fractures or dislocations identified. There is no subcutaneous gas. Th e soft tissue is unremarkable. There is right hip intramedullary bryan. There is mild to moderate josiane ateral hip primary osteoarthritis. IMPRESSION: 1. XR hip LT 2V w AP pelvis exam without acute osseous findings. Reviewed, dictated and finalized at location A. CIATE MERCHANDISE PLANNER
--- NOTE | ~2021-07-25 | CT_ITS ---
EXAMINATION: CT brain wo con EXAM DATE: 07/25/2021 07:30 INDICATION: Fall, head injury. TECHNIQUE: Spiral CT of the head was performed without contrast. Axial, coronal and sagittal images were reviewed. The dose-length product (DLP) for this examination was 681.00 mGy-cm. The exposure w as tailored according to patient size, and iterative reconstruction (ASIR) was used as additional dos e reduction technique. Comparison is made to prior examination from 01/20/2019. FINDINGS: There is right frontal subcortical white matter encephalomalacia inferiorly as previously s een, chronic finding unchanged. Location could indicate that it developed from old posttraumatic etio logy. There is mild cerebral atrophy. There is no acute intraparenchymal hemorrhage. No evidence of intraparenchymal brain mass lesion. No evidence of acute infarction. There is no mass effect or mid line shift. The ventricles are normal in size. There are no extra-axial collections. There are no acute calvarial fractures. The orbits are unremarkable. Soft tissue is unremarkable. The visualized sinuses and mastoid air cells are well aerated. There is no significant interval change. IMPRESSION: 1. No acute intracranial findings. 2. Right frontal lobe encephalomalacia. Reviewed, dictated and finalized at location A. E PAINTER
[2021-07-25 06:54] VITALS: BP 108/56; PULSE 64; RESP 18; TEMP 36.6; O2SAT 98
[2021-07-25 07:03] VITALS: PULSE 52
--- NOTE | 2021-07-25 07:26 | ED.FALL ---
HPI - Fall General Chief Complaint: Fall Stated Complaint: left leg pain Time Seen by Provider: 07/25/21 07:01 Source: RN notes reviewed History of Present Illness HPI Narrative: Patient presents emergency department from home for a fall. Patient states approximately 4 AM this morning he woke he is he is falling out of bed states he landed on his left side with his cane across his left thigh he states that he has been having pain in the left hip and leg since that time with difficulty walking he denies striking his head but is on Xarelto he denies any knee or ankle pain he denies any chest pain shortness of breath abdominal pain or any other symptoms. Patient states he took a hydrocodone at 515 this morning Related Data Home Medications Medication Instructions Recorded Confirmed cholecalciferol (vitamin D3) 50 50 mcg PO WEEKLY cap 03/05/21 03/05/21 mcg (2,000 unit) capsule Allergies Allergy/AdvReac Type Severity Reaction Status Date / Time Penicillins Allergy Unknown Deadly Verified 03/05/21 15:54 aspirin AdvReac Nausea Verified 07/25/21 07:00 Review of Systems Review of Systems: Gen.: Denies fevers or chills Eyes: Denies eye pain or visual change ENT: Denies facial pain Respiratory: Denies shortness of breath CV: Denies chest pain GI: Denies abdominal pain nausea, emesis Musculoskeletal: See HPI Neuro: Denies numbness, tingling, weakness or focal weakness Skin: Denies rash Except as documented, all other systems reviewed and negative PMFSH Past Medical History Medical History (Updated 07/25/21 @ 08:16 by Guido Kumar DO) Absent kidney Arthritis Asthma Atrial fibrillation BMI 45.0-49.9, adult Cancer of kidney Cerebral hemorrhage Chronic low back pain Clear cell carcinoma of right kidney Depressive disorder Essential hypertension History of cardioversion Hypertensive heart disease with heart failure Moderate persistent asthma Morbid obesity Myocardial infarction Post concussion syndrome Rosacea Shortness of breath Sleep apnea Surgical History Surgical History History of arthroplasty of right ankle History of cardiac catheterization History of nephrectomy Family History Family History Mother Family history of cardiovascular disease Patient's mother is in good health Father Family history of congestive heart failure Acute myocardial infarction Sibling Patient's sister is in good health Social History Social History Smoking status: Former smoker Second hand tobacco smoke exposure: No Smoking end date: 07/24/96 Alcohol intake: current Drinks per week: 7 Alcohol use details: Max 1 beer per day Substance use: never Substance use type: does not use Gender identity (if verbalized by the patient): Male Sexual Orientation (if Verbalized by the Patient): Straight or Heterosexual Spiritual care concerns: No Agree to blood products: Yes Exam Narrative: APPEARANCE: No acute distress, nontoxic, resting in bed EYES: EOMI HEENT: Normocephalic, atraumatic, OMM Neck: Supple nontender palpation RESPIRATORY: No respiratory distress Clear to auscultation bilaterally with no rhonchi wheezing or rales. CARDIOVASCULAR: Regular rate and rhythm without murmurs rubs or gallops. ABDOMINAL: Soft, nontender, nondistended, no rebound or guarding MUSCULOSKELETAl: Moves all extremities. No clubbing, cyanosis or edema. Tender to palpation left lateral and anterior hip pain with flexion abduction greater than 45 degrees no tenderness left knee or ankle dorsalis pedis pulse 2+ neurovascular intact NEURO: Awake and alert. Following commands, speech normal, no focal deficits SKIN:: Warm, dry. No rashes lesions or abrasions PSYCHIATRIC: Normal affect/mood, Course Course Emergency Course: Patient able to get up an
[2021-07-25 08:28] VITALS: BP 104/70; PULSE 50; RESP 17; O2SAT 99
== END 2021-07-25 08:28 | disposition home or self-care (01) ==
PROVIDERS: Emergency Provider Emergency Medicine; PCP Internal Medicine
DX: S70.02XA Contusion of left hip, initial encounter (principal); J45.40 Moderate persistent asthma, uncomplicated; I11.0 Hypertensive heart disease with heart failure; I50.9 Heart failure, unspecified; E66.01 Morbid (severe) obesity due to excess calories; I25.2 Old myocardial infarction; G47.30 Sleep apnea, unspecified; M19.90 Unspecified osteoarthritis, unspecified site; Z85.528 Personal history of other malignant neoplasm of kidney; Z90.5 Acquired absence of kidney; Z87.891 Personal history of nicotine dependence; G93.89 Other specified disorders of brain; W06.XXXA Fall from bed, initial encounter
CPT/HCPCS: 70450; 73502; 99284

== ENCOUNTER 2022-08-03 06:34 | Outpatient (CLI) | payer MEDICARE, MEDICAID, SELFPAY ==
[2022-08-03 07:45] LABS: Alanine Aminotransferase 28 U/L (6-50); Albumin Level 4.2 g/dL (3.5-5.1); Alkaline Phosphatase 88 U/L (38-126); Anion Gap 7 mmol/L (8-16); Aspartate Amino Transferase 30 U/L (17-59); Blood Urea Nitrogen 22 mg/dL (9-20); Calcium 8.3 mg/dL (8.4-10.2); Carbon Dioxide 28 mmol/L (22-30); Chloride 106 mmol/L (98-107); Cholesterol 183 mg/dL (0-200); Estimated Glomerular Filt Rate 52; Glucose 125 mg/dL (65-110); HDL Direct 35 mg/dL; Potassium 4.2 mmol/L (3.4-5.0); Sodium 141 mmol/L (137-145); Triglycerides 88 mg/dL (<150)
[2022-08-03 07:56] LABS: LDL Cholesterol Direct 99 mg/dL
[2022-08-03 08:14] LABS: Prostate Specific Antigen 0.6 ng/mL (< OR = 4.0)
[2022-08-03 08:25] LABS: Free T4 Free Thyroxine 1.29 ng/mL (0.78-2.19); Vitamin D 25 Hydroxy 29.6 ng/mL
== END 2022-08-03 06:35 | disposition home or self-care (01) ==
PROVIDERS: PCP Internal Medicine; Visit Provider Nurse Practitioner
DX: E55.9 Vitamin D deficiency, unspecified (principal); Z79.899 Other long term (current) drug therapy; Z13.220 Encounter for screening for lipoid disorders; Z12.5 Encounter for screening for malignant neoplasm of prostate; I12.9 Hypertensive chronic kidney disease with stage 1 through stage 4 chronic kidney disease, or unspecified chronic kidney disease; N18.31 Chronic kidney disease, stage 3a
CPT/HCPCS: 36415; 80053; 80061; 82306; 84153; 84439; 84443; G0103

== ENCOUNTER 2022-08-25 12:20 | Outpatient (CLI) | payer MEDICARE, MEDICAID, SELFPAY ==
[2022-08-25 13:21] LABS: Hemoglobin A1C 5.4 % (<5.7)
== END 2022-08-25 12:21 | disposition home or self-care (01) ==
PROVIDERS: PCP Internal Medicine; Visit Provider Nurse Practitioner
DX: R73.9 Hyperglycemia, unspecified (principal)
CPT/HCPCS: 36415; 80307; 83036

== ENCOUNTER 2022-09-07 14:39 | Outpatient (CLI) | payer MEDICARE, MEDICAID, SELFPAY ==
[2022-09-09 10:37] LABS: PCP NEGATIVE ng/mL (<25)
[2022-09-13 11:18] LABS: Amphetamines Negative; Barbiturates Negative; Benzodiazepines Negative; Cocaine Metabolites Negative; Marijuana Metabolites Negative
== END 2022-09-07 14:40 | disposition home or self-care (01) ==
PROVIDERS: PCP Internal Medicine; Visit Provider Internal Medicine
DX: Z79.899 Other long term (current) drug therapy (principal)
CPT/HCPCS: 80307

== ENCOUNTER 2023-01-09 14:40 | Outpatient (CLI) | payer MEDICARE, MEDICAID, SELFPAY ==
[2023-01-09 19:21] LABS: Alanine Aminotransferase 35 U/L (6-50); Albumin Level 4.7 g/dL (3.5-5.1); Alkaline Phosphatase 75 U/L (38-126); Anion Gap 8 mmol/L (8-16); Aspartate Amino Transferase 49 U/L (17-59); Bilirubin,Total 1.9 mg/dL (0.2-1.3); Blood Urea Nitrogen 25 mg/dL (9-20); Calcium 8.8 mg/dL (8.4-10.2); Carbon Dioxide 29 mmol/L (22-30); Chloride 98 mmol/L (98-107); Estimated Glomerular Filt Rate 57; Glucose 103 mg/dL (65-110); Phosphorus 3.8 mg/dL (2.5-4.5); Potassium 4.4 mmol/L (3.4-5.0); Sodium 135 mmol/L (137-145)
[2023-01-11 17:23] LABS: Amphetamines NEGATIVE ng/mL (<500); Barbiturates NEGATIVE ng/mL (<300); Benzodiazepines NEGATIVE ng/mL (<100); Cocaine Metabolite NEGATIVE ng/mL (<150); Marijuana Metabolite NEGATIVE ng/mL (<20); Methadone Metabolite NEGATIVE ng/mL (<100); Opiates POSITIVE ng/mL (<100); Oxidant NEGATIVE mcg/mL (<200); pH 7.4 (4.5-9.0)
== END 2023-01-09 14:41 | disposition home or self-care (01) ==
LOC: ANHGOSHLAB 14:42
PROVIDERS: Nurse Practitioner Family; PCP Anesthesiology Pain Medicine; Visit Provider Anesthesiology Pain Medicine
DX: I13.10 Hypertensive heart and chronic kidney disease without heart failure, with stage 1 through stage 4 chronic kidney disease, or unspecified chronic kidney disease (principal); N18.30 Chronic kidney disease, stage 3 unspecified; Z79.891 Long term (current) use of opiate analgesic; G89.4 Chronic pain syndrome
CPT/HCPCS: 36415; 80053; 80307; 84100

== ENCOUNTER 2023-02-15 15:05 | Outpatient (RCR) | payer MEDICARE, MEDICAID, SELFPAY ==
--- NOTE | 2023-01-17 09:55 | PCPTNOTE ---
Patient did not show up for scheduled initial evaluation this date.
--- NOTE | 2023-02-16 16:56 | PTOPEVAL1 ---
Assessment and note entered by Germain Delcid, PT Evaluation Information Subjective Information Patient comes to the clinic with his sister. Sister asks to come back to the gym to be present during the evaluation as patient will forget things the the sister wants to make sure the physical therapist gets the whole picture of the patient. Patient has history of TBI along with short term memory issues and other significant medical history seen above. Patient has had increased pain in the L hip/thigh since Dr. Mathis retired and they were seeing another MD, but sister states that MD , a doctor Keiry, was crazy and just left. Currently being seen by a pain specialist that wants to do therapy and possibility of injections which patient and family wants to hold off on because he is on a blood thinner secondary to a diagnosis of A-Fib and are worried about hematomas. Patient main cause of pain is getting in and out of chair. (his lift chair is currently broken). Patient also has pain with walking. He does go to do exercises in the pool and uses the Nust[facility] at the [facility]. Patient shows me his card where he fills out his heart rate after doing Nustep. Patient is currently using a straight cane that appears too short for him. Patient and sister reports he also has another cane, a wheeled walker, a standard walker. Patient reports he prefers the standard walker to the wheeled walker because it is more stable, but it really slows down how he walks. Patient states he is missing part of the cane top on his other cane and sister reports patient keeps equipment and other objects because he has attachment to them even though he probably shouldn't 't use them. Patient reports falls mainly with going up and down steps to get onto the bus to the [facility]. Patient and sister also state patient is fairly sedentary at his home Patient does take 1- 2 extra seconds to answer physical therapist, but sister does not report that as remarkable. Reported Pain Level Pain Score 3: Self Report Assessment PT Clinical Summary Ari is a 58 year old male coming into the clinic with back and L hip pain. The patient demonstrates lower extremity tightness on both side more on the left side along with pain with manual muscle testing. Patient at end of session after talking about exercises and plan of care is according to the
== END 2023-02-17 07:37 | disposition home or self-care (01) ==
LOC: ANHPT 15:05
PROVIDERS: PCP Anesthesiology Pain Medicine; Visit Provider Anesthesiology Pain Medicine
DX: M54.9 Dorsalgia, unspecified (principal); M25.559 Pain in unspecified hip
CPT/HCPCS: 97161

== ENCOUNTER 2023-02-15 16:39 | Emergency (ER) | payer MEDICARE, MEDICAID, SELFPAY ==
[2023-02-15] VITALS (8 sets, daily range): BP systolic 134–152; BP diastolic 88–96; PULSE 61–64; RESP 15–18; TEMP 37.3; O2SAT 96–100
--- NOTE | ~2023-02-15 | CT_ITS ---
EXAMINATION: CT chest abdomen pelvis wo con DATE: 02/15/2023 17:38 CDT INDICATION: Metastatic disease. TECHNIQUE: Computed tomography (CT) of the chest, abdomen, and pelvis was performed with 100 cc Omnip aque 350 intravenous contrast. The dose-length product was 2167.05 mGy-cm. Automated exposure control and iterative reconstruction technique were employed. COMPARISON: CT dated 08/01/2018 FINDINGS: CHEST CT: No significant pleural or pericardial effusion. Heart size normal. No thoracic lymphadenopathy. No fabian spicious pulmonary nodules or masses. There is lingular atelectasis. There are are bilateral lung opa cities in the lingula, nonspecific. No endobronchial lesions. No pneumothorax. ABDOMEN/PELVIS CT: There are multiple ventral abdominal wall hernias containing fat. There are gallstones. The liver, sp alex, pancreas, adrenal glands and left kidney are unremarkable. The right kidney is not identified, possibly surgically absent. No significant vascular abnormality. There is a fat-containing right ingu inal hernia. There is a dynamic compression screw with intramedullary bryan in the right femur. No susp icious lytic or blastic lesions. Moderate lower thoracic and lumbar spondylosis. IMPRESSION: 1. No evidence for metastatic disease. 2: Cholelithiasis. 3: Multiple ventral abdominal wall hernias containing fat. 4: Groundglass opacities of the lingula, nonspecific. Consider infectious/inflammatory etiologies as well as small airway disease. Reviewed, dictated and finalized at location A. IMPRESSION: 1. No evidence for metastatic disease. 2: Cholelithiasis. 3: Multiple ventral abdominal wall hernias containing fat. 4: Groundglass opacities of the lingula, nonspecific. Consider infectious/infl ammatory etiologies as well as small airway disease.
--- NOTE | ~2023-02-15 | CT_ITS ---
EXAMINATION: CTA brain carotid DATE: 02/15/2023 17:56 CDT INDICATION: Left-sided weakness. Possible mass. TECHNIQUE: Computed tomographic angiography (CTA) of the head was performed with 100 mL Omnipaque-350 intravenous contrast. CTA of the neck was performed with intravenous contrast. The dose-length produ ct was 1234.74 mGy-cm. Maximum intensity projection and volume rendered 3D-reconstructions were creat ed by the technologist on a separate workstation. Automated exposure control and iterative reconstruc tion technique were employed. COMPARISON: CT dated 02/15/2023 and 07/25/2021. FINDINGS: HEAD CTA: There is chronic right frontal lobe infarction. There is an enhancing mass which appears to be involving the right lateral ventricle, occipital horn with feeding vessels extending to the choro id plexus. There is mass effect with surrounding vasogenic edema and midline shift to the left. There is effacement of the right lateral ventricle. The enhancing mass is less likely extraventricular cau sing mass effect on the ventricle. There is mild intracranial atherosclerosis without significant shannan nosis, occlusion, aneurysm or vascular anomaly. There are dominant vertebral arteries. NECK CTA: There is mediastinal lipomatosis. No abnormality of the thyroid gland. There is medial cour se to the common carotid arteries bilaterally. No significant vascular abnormality of the head or nec k. No cervical lymphadenopathy. There is less than 10% stenosis of the proximal right internal carotid artery relative to normal dist al artery lumen diameter (NASCET criteria). There is less than 10% stenosis of the proximal left inte rnal carotid artery relative to normal distal artery lumen diameter. IMPRESSION: 1.: Enhancing mass of the right posterior parietal location which appears to be intraventricular rath er than extraventricular causing effacement of the ventricle. This mass measures 8.9 cm AP x3.7 cm tr ansverse x4.1 cm craniocaudal. There is significant surrounding vasogenic edema causing mass effect w ith effacement of the overlying cortical sulci in right to left midline shift. Differential diagnosis includes metastatic disease, meningioma, choroid plexus papilloma, subependymoma giant cell astrocyt [place], choroid plexus carcinoma and ependymoma. 2: No significant vascular abnormality of the head or neck. Reviewed, dictated and finalized at location A. IMPRESSION: 1.: Enhancing mass of the right posterior parietal location which appears to be intraventricular rather than extraventricular causing effacement of the ventri arianne. This mass measures 8.9 cm AP x3.7 cm transverse x4.1 cm craniocaudal. Ther e is significant surrounding vasogenic edema causing mass effect with effacemen t of the overlying cortical sulci in right to left midline shift. Differential diagnosis includes metastatic disease, meningioma, choroid plexus papilloma, fabian bependymoma giant cell astrocytoma, choroid plexus carcinoma and ependymoma. 2: No significant vascular abnormality of the head or neck.
--- NOTE | ~2023-02-15 | XR_ITS ---
XR chest 1V 02/15/2023 17:37 Indication: CVA. Procedure: AP view of the chest Comparison: Comparison to multiple prior studies sequentially, with oldest reviewed study dated 06/23. Findings: Cardiomegaly. No focal air space disease, pulmonary edema, pleural effusion or suspected pn eumothorax. Impression: 1: No acute cardiopulmonary disease. Reviewed, dictated and finalized at location A. Impression: 1: No acute cardiopulmonary disease.
--- NOTE | ~2023-02-15 | CT_ITS ---
EXAMINATION: CT brain wo con DATE: 02/15/2023 16:41 INDICATION: Left-sided weakness TECHNIQUE: Computed tomography (CT) of the head was performed without intravenous contrast. The dose- length product was 681.00 mGy-cm. Automated exposure control and iterative reconstruction technique w ere employed. COMPARISON: CT dated 07/25/2021 FINDINGS: There is patchy geographic areas of hypovascularity in the right hemisphere involving the r ight parietal and temporal lobes with mass effect. There is effacement of the overlying cortical sulc i with midline shift to the left. There is a chronic right frontal lobe infarction. No ventriculomega ly. Basilar cisterns are patent. Paranasal sinuses and mastoids are pneumatized. No depressed skull f ractures. No intracranial hemorrhage is identified. Midline sagittal images demonstrate a normal gianna us callosum and craniovertebral junction. IMPRESSION: 1. Large areas of geographic hypodensity in the right parietal and temporal lobes, suspicious for met astatic disease with associated vasogenic edema. Infarction less favored. Recommend correlation with contrast-enhanced CT. There is associated mass effect with effacement of the overlying cortical sulci midline shift to the left. As per stroke protocol, I called these results to emergency room, discussed with Dr. Raymond hardin MD at 02/15/2023 16:49 CDT. Reviewed, dictated and finalized at location A. IMPRESSION: 1. Large areas of geographic hypodensity in the right parietal and temporal lob es, suspicious for metastatic disease with associated vasogenic edema. Infarcti on less favored. Recommend correlation with contrast-enhanced CT. There is asso ciated mass effect with effacement of the overlying cortical sulci midline shif t to the left. As per stroke protocol, I called these results to emergency room, discussed wit h Dr. Raymond Kramer MD at 02/15/2023 16:49 CDT.
--- NOTE | 2023-02-15 16:57 | ECG_ITS ---
Measurements Intervals [address] Rate: 58 P: 57 MI: 176 QRS: -15 QRSD: 103 T: 13 QT: 432 QTc: 426 Interpretive Statements SINUS BRADYCARDIA LOW QRS VOLTAGE IN PRECORDIAL LEADS CANNOT RULE OUT SEPTAL INFARCT, AGE INDETERMINATE BORDERLINE T WAVE ABNORMALITY- INFERIOR LEADS BASELINE ARTIFACT- I, II, III, AVR, AVL ,AVF, V1-V3 ABNORMAL ECG NO PREVIOUS ECG AVAILABLE FOR COMPARISON Electronically Signed On 02-16-2023 8:24:26 CDT by Placido Murray D.O.
--- NOTE | 2023-02-15 16:58 | PC.NURSE ---
Sister states she is the guardian and makes all decisions. Pt is A&Ox4.
[2023-02-15 17:05] LABS: Basophils Absolute Auto 0.1 K/mm3 (0.0-0.1); Basophils Percent Auto 0.9 % (0.2-1.2); Eosinophils Absolute Auto 0.1 K/mm3 (0-0.3); Eosinophils Percent Auto 2.2 % (0-4.4); Hematocrit 44.2 % (42.0-52.0); Hemoglobin 14.9 g/dL (14.0-18.0); Immature Granulocyte Absolute 0.04 K/mm3 (0.00-0.031); Immature Granulocyte Percent A 0.7 % (0-0.5); Lymphocytes Absolute Auto 1.19 K/mm3 (0.9-3.2); Lymphocytes Percent Auto 20.2 % (18.3-44.2); Mean Corpuscular HGB Conc 33.7 g/dl (32-36); Mean Corpuscular Hemoglobin 30.3 pg (26-34); Mean Corpuscular Volume 89.8 fl (80-100); Mean Platelet Volume 7.9 fl (7.4-10.4); Monocytes Absolute Auto 0.9 K/mm3 (0.1-0.6); Monocytes Percent Auto 15.3 % (2.6-8.5); Neutrophils Absolute Auto 3.6 K/mm3 (1.3-6.7); Neutrophils Percent Auto 60.7 % (45.5-73.1); Platelet Count Result 217 k/mm3 (150-375); Red Blood Count 4.92 M/mm3 (4.6-6.20); Red Cell Distribution Width 14.4 % (11.5-14.5); White Blood Count 5.9 K/mm3 (4.5-10.0)
[2023-02-15 17:13] LABS: Alanine Aminotransferase 33 U/L (6-50); Albumin Level 4.5 g/dL (3.5-5.1); Alkaline Phosphatase 82 U/L (38-126); Anion Gap 7 mmol/L (8-16); Aspartate Amino Transferase 40 U/L (17-59); Bilirubin,Total 1.4 mg/dL (0.2-1.3); Blood Urea Nitrogen 17 mg/dL (9-20); Calcium 9.1 mg/dL (8.4-10.2); Carbon Dioxide 30 mmol/L (22-30); Chloride 100 mmol/L (98-107); Estimated Glomerular Filt Rate > 60; Ethanol < 10 mg/dL (<10); Glucose 104 mg/dL (65-110); Potassium 4.1 mmol/L (3.4-5.0); Sodium 137 mmol/L (137-145)
[2023-02-15 17:17] LABS: INR 1.5; Prothrombin Time 18.6 Seconds (11.1-14.7)
--- NOTE | 2023-02-15 17:47 | ED.NEUROSD ---
HPI - Neuro Symptoms/Deficit General Chief Complaint: Suspected CVA Stated Complaint: code stroke History of Present Illness HPI Narrative: This is a 58-year-old male, with past medical history of kidney cancer status post nephrectomy, A-fib on Xarelto, who presents emergency department as a code stroke with left-sided deficits. The patient's last known well was 3 PM today, he was at an appointment, when he had sudden onset loss of vision in the left eye and left upper extremity weakness. His sister called the EMS. Initial stroke score in the field was 0. On my evaluation, the patient complained of vision loss in the left eye but had no other complaints Related Data Home Medications Medication Instructions Recorded Confirmed cholecalciferol (vitamin D3) 50 50 mcg PO WEEKLY 03/05/21 01/09/23 mcg (2,000 unit) capsule furosemide 40 mg tablet 20 mg .Route .COMPLEX 09/01/22 01/09/23 Allergies Allergy/AdvReac Type Severity Reaction Status Date / Time Penicillins Allergy Unknown Deadly Verified 12/21/22 11:38 aspirin AdvReac Nausea Verified 12/21/22 11:38 Review of Systems Review of Systems: CONSTITUTIONAL: Denies fever, chills, or sweats. EYES: Left visual field loss Denies visual changes, redness, or discharge. ENT: Denies rhinorrhea, congestion, sore throat, or otalgia. CARDIOVASCULAR: Denies chest pain, palpitations, or edema. RESPIRATORY: Denies cough or dyspnea. GASTROINTESTINAL: Denies abdominal pain, nausea, vomiting, or diarrhea. GENITOURINARY: Denies dysuria or hematuria. SKIN: Denies rash or itching. MUSCULOSKELETAL: Denies back pain, joint pain, or myalgia. NEUROLOGIC: Left upper and lower extremity weakness denies headache, numbness, dizziness PSYCHIATRIC: Denies anxiety or depression. [facility] Past Medical History Medical History Absent kidney Arthritis Asthma Atrial fibrillation BMI 45.0-49.9, adult Cancer of kidney Cerebral hemorrhage Chronic low back pain Clear cell carcinoma of right kidney Depressive disorder Essential hypertension Fall with injury History of cardioversion Hypertensive heart disease with heart failure Moderate persistent asthma Morbid obesity Myocardial infarction Post concussion syndrome Rosacea Shortness of breath Sleep apnea Surgical History Surgical History History of arthroplasty of right ankle History of cardiac catheterization History of nephrectomy Family History Family History Mother Family history of cardiovascular disease Patient's mother is in good health Father Family history of congestive heart failure Acute myocardial infarction Sibling Patient's sister is in good health Social History Social History Smoking status: Former smoker Tobacco type: smokeless tobacco Smokeless tobacco user: chewing tobacco Second hand tobacco smoke exposure: No Smoking end date: 07/24/96 Alcohol intake: current Drinks per week: 2 Alcohol use details: rarely Substance use: never Substance use type: does not use Lack of Transportation: No Lack of Food: Never True Current Housing: I Have Housing Concerned About Future Housing: No Difficulty Paying Gas/Electric Bills: No Difficulty Paying for Meds: No Currently Unemployed: No Education: Trade/Vocational Certificate Difficulty w/ Childcare or Family Care: No Living arrangements: alone Occupation/Education: unemployed Gender identity (if verbalized by the patient): Male Sexual Orientation (if Verbalized by the Patient): Straight or Heterosexual Spiritual care concerns: No Agree to blood products: Yes Exam Narrative: GENERAL: Well-developed, well-nourished, and in no acute distress. HEAD: Normocephalic, atraumatic. EYES: PERRLA and EOMI.
--- NOTE | 2023-02-15 18:55 | PC.NURSE ---
Report called to Kallie BURNETTE
[2023-02-15] MEDS: ACETAMINOPHEN 500 MG TABLET 1000 MG PO (19:25)
[2023-02-16 09:08] LABS: Glucose Point of Care 120 mg/dl (65-105)
== END 2023-02-15 19:43 | disposition short-term general hospital (02) ==
PROVIDERS: Emergency Provider Preventive Medicine Aerospace Medicine; PCP Anesthesiology Pain Medicine
DX: G93.89 Other specified disorders of brain (principal); H54.62 Unqualified visual loss, left eye, normal vision right eye; I25.2 Old myocardial infarction; I11.0 Hypertensive heart disease with heart failure; I50.9 Heart failure, unspecified; I48.91 Unspecified atrial fibrillation; J45.40 Moderate persistent asthma, uncomplicated; M19.90 Unspecified osteoarthritis, unspecified site; G47.30 Sleep apnea, unspecified; F32.A Depression, unspecified; Z87.891 Personal history of nicotine dependence; Z85.528 Personal history of other malignant neoplasm of kidney; Z90.5 Acquired absence of kidney; R00.1 Bradycardia, unspecified; Z79.01 Long term (current) use of anticoagulants; Z79.899 Other long term (current) drug therapy; Z79.51 Long term (current) use of inhaled steroids; R94.31 Abnormal electrocardiogram [ECG] [EKG]
CPT/HCPCS: 36415; 70450; 70496; 70498; 71045; 71250; 74176; 80053; 80307; 82948; 85025; 85610; 93005; 96365; 96375; 99285; A9270; J1100; Q9967

== ENCOUNTER 2023-02-27 09:40 | Outpatient (CLI) | payer MEDICARE, MEDICAID, SELFPAY ==
--- NOTE | 2023-02-27 10:07 | ECHO_ITS ---
Patient Info Name: Jack Gates Age: 58 years : 1965 Gender: Male Ht: 73 in Wt: 318 lbs BSA: 2.79 m2 HR: 50 bpm BP: 116 / 79 mmHg Heart Rhythm: Bradycardia Technical Quality: Fair Exam Date: 02/27/2023 10:15 AM Exam Location: [facility] Pulmonary Patient Status: Outpatient Admit Date: 02/27/2023 Staff Ordering Physician: Placido Murray DO Manufacturing Process Technician: Nelli Chavarria RDCS Attending Provider: Placido Murray DO Referring Physician: Trevor DELATORRE; Exam Type: CA echo doppler color flow Study Info Indications - Unspecified diastolic (congestive) heart failure Complete two-dimensional, color flow and Doppler transthoracic echocardiogram is performed. Summary 1. Complete two-dimensional, color flow and Doppler transthoracic echocardiogram is performed. 2. Left ventricular chamber dimension is normal. 3. Left ventricular systolic function is normal, estimated at 60-65%. 4. The left ventricular diastolic function is grade I diastolic dysfunction. 5. E/e' 9 is minimally elevated. 6. There is mild aortic valve sclerosis. 7. No pulmonary hypertension, estimated pulmonary arterial systolic pressure is 22 mmHg. Left Ventricle E/e' 9 is minimally elevated. Left ventricular chamber dimension is normal. Left ventricular systolic function is normal, estimated at 60-65%. The left ventricular diastolic function is grade I diastolic dysfunction. Right Ventricle Right ventricular systolic function is normal and with normal TAPSE 2.6 cm. Right ventricular chamber dimension is normal. Left Atria Left atrial chamber dimension is normal. Right Atria Right atrial chamber dimension is normal. Aortic Valve The aortic valve is trileaflet. There is mild aortic valve sclerosis. There is no aortic valve stenosis. There is no aortic valve regurgitation. Pulmonic Valve There is no pulmonic regurgitation. Mitral Valve There is no mitral valve stenosis. There is no mitral valve regurgitation. Tricuspid Valve There is no tricuspid valve regurgitation. No pulmonary hypertension, estimated pulmonary arterial systolic pressure is 22 mmHg. Pericardium/Pleural There is no pericardial effusion. Inferior Vena Cava Normal inferior vena cava with >50% collapse upon inspiration consistent with normal right atrial pressure, 5 mmHg. Aorta The aortic root size at the sinus of Valsalva is normal. Left Ventricular Outflow Tract Name Value Normal LVOT 2D LVOT Diameter 2.0 cm LVOT Doppler LVOT Peak Gradient 5 mmHg LVOT Mean Gradient 2 mmHg LVOT VTI 20 cm LVOT VTI/AV VTI Ratio 0.7 LVOT Stroke Volume 64 ml LVOT CO 2.9 l/min LVOT CI 1.0 l/min/m2 Pulmonic Valve Name Value Normal RVOT Doppler RVOT Peak Gradient 3 mmHg PV Doppl
== END 2023-02-27 09:41 | disposition home or self-care (01) ==
PROVIDERS: PCP Family Medicine; Visit Provider Internal Medicine Cardiovascular Disease
DX: I50.30 Unspecified diastolic (congestive) heart failure (principal)
CPT/HCPCS: 93306

== ENCOUNTER 2023-03-16 14:55 | Inpatient (IN) | payer MEDICARE, MEDICAID, SELFPAY ==
[2023-03-16] VITALS (12 sets, daily range): BP systolic 111–157; BP diastolic 45–89; PULSE 52–67; RESP 12–19; TEMP 36.3–37.1; O2SAT 96–100; BMI 39.1
--- NOTE | ~2023-03-16 | CT_ITS ---
EXAMINATION: CT brain wo con INDICATION: Transient alteration of awareness, discharged yesterday from outside hospital after treat ment for glioblastoma. COMPARISON: 02/15/2023 TECHNIQUE: Standard unenhanced head CT. The dose-length product (DLP) was 681.00 mGy-cm. The mA was a djusted according to patient size. Iterative reconstruction technique was employed. FINDINGS: There are encephalomalacia and a tumor resection cavity in the right frontal, temporal, par ietal, and occipital lobes, consistent with treatment for glioblastoma. A small amount of encephaloma lacia anteriorly in the right frontal lobe may reflect prior infarction. There are changes of interva l right temporal craniotomy with an underlying subacute appearing subdural hematoma. In addition, the re are tiny foci of associated extra-axial gas There is mild periventricular and subcortical hypodens ity probably related to small vessel ischemic disease. There is mild prominence of the sulci and vent ricles related to cerebral atrophy. Intracranial calcified cerebral atherosclerosis is noted. No extr a-axial collections. There are 4 mm of [id number]-pyem midline shift. The orbits and soft tissues are u nremarkable. The visualized sinuses and mastoid air cells are well aerated. IMPRESSION: 1. Changes in the right frontal, temporal, parietal, and occipital lobes, consistent with interval tr eatment for glioblastoma. A small subacute appearing right-sided subdural hematoma and associated gas also likely reflect resolving postoperative surgical change. 2. Age related findings. Reviewed, dictated and finalized at location A. IMPRESSION: 1. Changes in the right frontal, temporal, parietal, and occipital lobes, consi stent with interval treatment for glioblastoma. A small subacute appearing righ t-sided subdural hematoma and associated gas also likely reflect resolving post operative surgical change. 2. Age related findings.
--- NOTE | ~2023-03-16 | XR_ITS ---
XR chest 1V 03/16/2023 16:25 Indication: Abnormal heartbeat Procedure: AP view of the chest Comparison: Comparison to multiple prior studies sequentially, with oldest reviewed study dated 10/09. Findings: Cardiomegaly. No focal air space disease, pulmonary edema, pleural effusion or suspected pn eumothorax. No acute osseous abnormality. Impression: 1: No acute cardiopulmonary disease. Reviewed, dictated and finalized at location L. Impression: 1: No acute cardiopulmonary disease.
--- NOTE | 2023-03-16 15:54 | ECG_ITS ---
Measurements Intervals [place] Rate: 55 P: 114 MT: 192 QRS: -7 QRSD: 109 T: 26 QT: 439 QTc: 420 Interpretive Statements SINUS BRADYCARDIA LOW QRS VOLTAGE IN PRECORDIAL LEADS [QRS DEFLECTION < 1.0 mV IN CHEST LEADS] POSSIBLE ANTERIOR MYOCARDIAL INFARCTION , OF INDETERMINATE AGE [30 ms Q WAVE IN V3/V4, OR R < 0.2 mV IN V4] ABNORMAL ECG COMPARED TO ECG 02/15/2023 16:57:36 SLIGHTLY DIFFERENT PRECORDIAL LEAD POSITION Electronically Signed On 03-17-2023 14:39:11 CDT by Manohar Hobbs M.D.
--- NOTE | 2023-03-16 16:01 | ED.ARRPALP ---
HPI - Arrhythmia/Palpitations General Chief Complaint: Arrhythmia/Palpitations Stated Complaint: palpatations Time Seen by Provider: 03/16/23 15:15 Source: patient and family (Sister who is the DPOA and guardian) History of Present Illness HPI narrative: Patient is a 58-year-old male presenting to the emergency department with his sister who is the patient's guardian and [employer]URABLE POWER OF [employer]LEY STRIPPER via EMS from his primary care physician office however this was the first appointment with the primary care physician in which patient experienced lightheadedness with an associated sensation of his heart pausing. Sister notes that she also evaluated the pulse at the time and did experience it when the patient was noting that sensation that her sister also felt his heart rate was. Patient does have a known history of A-fib and is on carvedilol and no new changes to medications. Sister notes that the patient was just discharged from the hospital yesterday after a long inpatient and rehabilitation stay for a new diagnosis of glioblastoma and he is status postcraniotomy and this was the first follow-up appointment. This occurred at approximately 2 PM in which his sister noticed that the patient appeared near syncopal and had a few episodes of this and then they lowered him to the ground, the patient did not fully pass out, sister is unsure if the patient hit his head, patient denies any further sensation of his heart stopping or lightheadedness since coming to the emergency department. Sister states the patient does not have the staff that he requires for home health care. Sister notes that the patient is not informed of his diagnosis of glioblastoma. Sister notes that the patient typically has left upper and left lower extremity weakness when compared to the right and also has chronic visual field deficits. Sister reports patient is globally more weak in all limbs compared to his baseline. Patient denies difficulty urinating, dysuria, urinary urgency, urinary frequency, hematuria, melena, hematochezia, diarrhea, constipation, chest pain, shortness of breath, difficulty swallowing, dysphonia, vision changes, nausea, vomiting. MD complaint: skipped beats Duration: now resolved Context: occurred during exertion (post walking) Arrhythmia history: atrial fibrillation and on anti-coagulants Associated symptoms: near-syncope and muscle cramps Related Data Home Medications Medication Instructions Recorded Confirmed cholecalciferol (vitamin D3) 50 50 mcg PO WEEKLY 03/05/21 01/09/23 mcg (2,000 unit) capsule furosemide 40 mg tablet 20 mg .Route .COMPLEX 09/01/22 01/09/23 Allergies Allergy/AdvReac Type Severity Reaction Status Date / Time Penicillins Allergy Unknown Deadly Verified 03/16/23 13:52 aspirin AdvReac Nausea Verified 03/16/23 13:52 [facility] Past Medical History Medical History Absent kidney Arthritis Asthma Atrial fibrillation BMI 45.0-49.9, adult Cancer of kidney Cerebral hemorrhage Chronic low back pain Clear cell carcinoma of right kidney Depressive disorder Essential hypertension Fall with injury History of cardioversion Hypertensive heart disease with heart failure Moderate persistent asthma Morbid obesity Myocardial infarction Post concussion syndrome Rosacea Shortness of breath Sleep apnea Surgical History Surgical History History of arthroplasty of right ankle History of cardiac catheterization History of nephrectomy Family History Family History Mother Family history of cardiovascular disease Patient's mother is in good health Father Family history of congestive heart failure Acute myocardial infarction Sibling Patient's sister is in good health Social History Social History Smoking status: F
[2023-03-16 16:46] LABS: Basophils Percent Auto 0.3 % (0.2-1.2); Eosinophils Percent Auto 0.6 % (0-4.4); Hematocrit 39.3 % (42.0-52.0); Hemoglobin 12.8 g/dL (14.0-18.0); Immature Granulocyte Absolute 0.28 K/mm3 (0.00-0.031); Immature Granulocyte Percent A 4.4 % (0-0.5); Lymphocytes Absolute Auto 1.22 K/mm3 (0.9-3.2); Lymphocytes Percent Auto 19.3 % (18.3-44.2); Mean Corpuscular HGB Conc 32.6 g/dl (32-36); Mean Corpuscular Hemoglobin 30.8 pg (26-34); Mean Corpuscular Volume 94.7 fl (80-100); Mean Platelet Volume 7.8 fl (7.4-10.4); Monocytes Absolute Auto 0.6 K/mm3 (0.1-0.6); Monocytes Percent Auto 8.9 % (2.6-8.5); Neutrophils Absolute Auto 4.2 K/mm3 (1.3-6.7); Neutrophils Percent Auto 66.5 % (45.5-73.1); Platelet Count Result 118 k/mm3 (150-375); Red Blood Count 4.15 M/mm3 (4.6-6.20); Red Cell Distribution Width 15.2 % (11.5-14.5); White Blood Count 6.3 K/mm3 (4.5-10.0)
[2023-03-16 16:59] LABS: INR 1.1; Prothrombin Time 14.4 Seconds (11.1-14.7)
[2023-03-16 17:00] LABS: Partial Thromboplastin Time 28.4 SECONDS (22.3-36.8)
[2023-03-16 17:02] LABS: Glucose Point of Care 102 mg/dl (65-105)
[2023-03-16 17:04] LABS: Alanine Aminotransferase 25 U/L (6-50); Alkaline Phosphatase 72 U/L (38-126); Anion Gap 5 mmol/L (8-16); Aspartate Amino Transferase 29 U/L (17-59); Bilirubin,Total 1.1 mg/dL (0.2-1.3); Blood Urea Nitrogen 20 mg/dL (9-20); Calcium 7.5 mg/dL (8.4-10.2); Carbon Dioxide 25 mmol/L (22-30); Chloride 106 mmol/L (98-107); Creatine Kinase 32 U/L (55-170); Estimated CRCL calculation 102 ml/min; Estimated Glomerular Filt Rate > 60; Glucose 105 mg/dL (65-110); Potassium 3.9 mmol/L (3.4-5.0); Sodium 136 mmol/L (137-145)
[2023-03-16 17:09] LABS: Troponin I < 0.012 ng/mL (0.000-0.034)
[2023-03-16] MEDS: oxyCODONE HCL (*CRX) 5 MG TAB IR PO (20:17)
--- NOTE | 2023-03-16 20:33 | PM.IMHP ---
H&P: HPI History of Present Illness Date/Time: 03/16/23 20:33 Chief Complaint: near-syncope Narrative: This is a 58-year-old male with past medical history significant for atrial fibrillation rate controlled and anticoagulated, asthma, obesity, nephrectomy, due to renal cancer. Patient underwent right-sided craniectomy for tumor resection biopsy shows glioblastoma however patient unaware of results as per his sister who is at bedside. Patient had undergone rehabilitation however the has been a decline in his overall functioning and overall body strength was using a wheeled walker going to appointment with his primary care physician and it was noted that he had significant difficulty leaving the house as well as going through the parking lot and into the building once in the building he had an episode of palpitations patient said that he skipped a beat subsequently slumped over but without losing consciousness and was brought to the emergency room. Most of the history was obtained from sister who is his caregiver and also holds power of compliance attorney. Preliminary workup has been significant for postoperative changes. EXAMINATION: CT brain wo con ? INDICATION: Transient alteration of awareness, discharged yesterday from outside hospital after treatment for glioblastoma. ? COMPARISON: 02/15/2023 TECHNIQUE: Standard unenhanced head CT. The dose-length product (DLP) was 681.00 mGy-cm. The mA was adjusted according to patient size. Iterative reconstruction technique was employed. ? FINDINGS: There are encephalomalacia and a tumor resection cavity in the right frontal, temporal, parietal, and occipital lobes, consistent with treatment for glioblastoma. A small amount of encephalomalacia anteriorly in the right frontal lobe may reflect prior infarction. There are changes of interval right temporal craniotomy with an underlying subacute appearing subdural hematoma. In addition, there are tiny foci of associated extra-axial gas There is mild periventricular and subcortical hypodensity probably related to small vessel ischemic disease. There is mild prominence of the sulci and ventricles related to cerebral atrophy. Intracranial calcified cerebral atherosclerosis is noted. No extra-axial collections. There are 4 mm of [id number] midline shift. The orbits and soft tissues are unremarkable. The visualized sinuses and mastoid air cells are well aerated. IMPRESSION: 1. Changes in the right frontal, temporal, parietal, and occipital lobes, consistent with interval treatment for glioblastoma. A small subacute appearing right-sided subdural hematoma and associated gas also likely reflect resolving postoperative surgical change. 2. Age related findings. XR chest 1V 03/16/2023 16:25 Indication: Abnormal heartbeat Procedure: AP view of the chest Comparison: Comparison to multiple prior studies sequentially, with oldest reviewed study dated? 10/09/2016. Findings: Cardiomegaly. No focal air space disease, pulmonary edema, pleural effusion or suspected pneumothorax. No acute osseous abnormality. Impression: 1: No acute cardiopulmonary disease. Review of Systems Review of Systems: ROS unobtainable: Yes unobtainable due to mental status ( encephalopathy) [facility] Past Medical History Medical History Absent kidney Arthritis Asthma Atrial fibrillation BMI 45.0-49.9, adult Cancer of kidney Cerebral hemorrhage Chronic low back pain Clear cell carcinoma of right kidney Depressive disorder Essential hypertension Fall with injury History of cardioversion Hypertensive heart disease with heart failure Moderate persistent asthma Morbid obesity Myocardial infarction Post concussion syndrome Rosacea Shortness of breath Sleep apnea Surgical History Surgical History History of arthroplasty of right ankle History of cardiac catheterization History
[2023-03-17] VITALS (14 sets, daily range): BP systolic 118–125; BP diastolic 66–77; PULSE 46–85; RESP 15–20; TEMP 36.7–37.3; O2SAT 97–99
--- NOTE | 2023-03-17 01:06 | ADMGEN ---
This patient, Jack Gates Jr., was admitted to 3 [facility] Surg Room 305-02 @22:42. Patient/family oriented to hospital policies and general routines including ID bracelet, bed and alarms, visiting hours, pain management, procedures, bathroom and other care routines, personal items, smoking policy, room service/diet, and visiting hours. Information on how to activate the Rapid Response Team has been discussed. Patient/Family are encouraged to report perceived risks to care and to ask questions if they do not understand what they are told or what they should do.
[2023-03-17 02:04] LABS: Appearance Urine Clear (Clear); Bilirubin Urine Negative (Negative); Blood Urine Negative (Negative); Color Urine Dark Yellow (Yellow); Glucose Urine UA Negative (Negative); Ketones Urine Trace mg/dL (Negative); Leukocyte Esterase Ur 2+ LEU/UL (Negative); Nitrate Urine Negative (Negative); Non Pathogenic Casts 0-2; Protein Urine Trace mg/dL (Negative); Specific Grav Ur 1.027 (1.001-1.035); Squamous Epithelial Cell Urine None seen /hpf (Few); WBC Urine >100 /hpf; pH Urine 7.5 (5.0-9.0)
[2023-03-17 02:08] LABS: Add Urine Microscopic? YES; Bacteria Urine 1+ /hpf
[2023-03-17] MEDS: levETIRAcetam 500 MG TABLET PO ×2 (08:47→21:03)
[2023-03-17] MEDS: AMIODARONE HCL 200 MG TABLET BY MOUTH (08:48)
[2023-03-17] MEDS: MONTELUKAST SODIUM 10 MG TABLET BY MOUTH (08:48)
[2023-03-17 09:16] LABS: Basophils Percent Auto 0.4 % (0.2-1.2); Eosinophils Absolute Auto 0.1 K/mm3 (0-0.3); Eosinophils Percent Auto 1.2 % (0-4.4); Hemoglobin 13.3 g/dL (14.0-18.0); Immature Granulocyte Absolute 0.22 K/mm3 (0.00-0.031); Immature Granulocyte Percent A 4.5 % (0-0.5); Lymphocytes Absolute Auto 1.09 K/mm3 (0.9-3.2); Lymphocytes Percent Auto 22.4 % (18.3-44.2); Mean Corpuscular HGB Conc 32.4 g/dl (32-36); Mean Corpuscular Hemoglobin 30.9 pg (26-34); Mean Corpuscular Volume 95.1 fl (80-100); Mean Platelet Volume 7.8 fl (7.4-10.4); Monocytes Absolute Auto 0.4 K/mm3 (0.1-0.6); Monocytes Percent Auto 7.8 % (2.6-8.5); Neutrophils Absolute Auto 3.1 K/mm3 (1.3-6.7); Neutrophils Percent Auto 63.7 % (45.5-73.1); Platelet Count Result 135 k/mm3 (150-375); Red Blood Count 4.31 M/mm3 (4.6-6.20); Red Cell Distribution Width 15.4 % (11.5-14.5); White Blood Count 4.9 K/mm3 (4.5-10.0)
[2023-03-17 09:44] LABS: Alanine Aminotransferase 25 U/L (6-50); Albumin Level 2.8 g/dL (3.5-5.1); Alkaline Phosphatase 63 U/L (38-126); Anion Gap -3 mmol/L (8-16); Aspartate Amino Transferase 23 U/L (17-59); Bilirubin,Total 1.3 mg/dL (0.2-1.3); Blood Urea Nitrogen 17 mg/dL (9-20); Calcium 7.7 mg/dL (8.4-10.2); Carbon Dioxide 31 mmol/L (22-30); Chloride 104 mmol/L (98-107); Estimated CRCL calculation 100 ml/min; Estimated Glomerular Filt Rate > 60; Glucose 78 mg/dL (65-110); Magnesium 2.1 mg/dL (1.6-2.3); Potassium 3.7 mmol/L (3.4-5.0); Sodium 132 mmol/L (137-145)
--- NOTE | 2023-03-17 13:05 | PM.CNCAR ---
Assessment and Plan Assessment and plan (1) Vasovagal episode: Code(s): R55 - Syncope and collapse Status: Acute Assessment and Plan: Advise to avoid overheating, dehydration, over working. No further cardiac workup is needed. (2) PAF (paroxysmal atrial fibrillation): Code(s): I48.0 - Paroxysmal atrial fibrillation Status: Acute Assessment and Plan: On Amiodarone and Xarelto. In sinus rhythm. (3) Essential hypertension: Code(s): I10 - Essential (primary) hypertension Status: Acute Assessment and Plan: Stable. (4) Diastolic dysfunction: Code(s): I51.89 - Other ill-defined heart diseases Status: Acute Assessment and Plan: Euvolemic. Stop Lasix. History of Present Illness History of Present Illness Consult date/time: 03/17/23 13:05 Reason For Visit: near syncope Narrative: Patient is a 57 yr old man who presents for a follow up visit regarding his cardiovascular status.? He has a history of hypertension, PAF (On Amiodarone and Xarelto. ), chronic diastolic heart failure, dyslipidemia, CKD stage III ( Single kidney after renal cell cancer of one kidney resected.), obesity. He had recent craniotomy for brain tumor, was in rehab, then now stays with his sister. Patient's sister reports patient was struggling to walk with a walker yesterday to go his PCP's office visit, sweating, shaking and gripping on his walker and it was very hot yesterday up to 100 degrees. When he was sitting in waiting room, he reported his heart wants to stop beating, and he got dizzy and slumped over. His sister who is an RN checked his radial pulse which she states it felt regular but then a pause of 2-3 seconds was noted. ? enies chest pain, sob, orthopnea, palpitations, edema. Cardiovascular Procedures Primary Montessori Teacher:: Cath (Normal coronaries. LV angiogram EF 35%, global.) - 10/12/2016 Echo/MUGA:: Echo (EF 60%, grade I diastolic dysfunction, mild LAE, mild MR/TR.) - 09/07/2017 Echo (EF 60-65%, grade II diastolic dysfunction, mild LAE, trace MR/AI, mild TR.) - 01/14/2017 Echo (EF 45-50%, mild global LV systolic dysfunction, grade I diastolic dysfunction, mild LAE, trace MR/TR/PI.) - 10/11/2016 Electrophysiology:: 12/21/22 EKG: Sinus bradycardia at 51 bpm, QTc 445 ms. 02/20/20 EKG: Sinus rhythm at 60 bpm, QTc 432 ms. EKG (Sinus rhythm at 51 bpm, QTc 431 ms.) - 09/22/2017 EKG (Sinus rhythm, cannot rule out septal infarct, age indeterminate, QTc 448 ms.) - 01/27/2017 EKG (Sinus rhythm, cannot rule out septal infarct, QTc 442 ms.) - 11/22/2016 Cardioversion (Successful cardioversion with 200 J biphasic energy from atrial fib to sinus rhythm.) - 10/11/2016 Stress Tests:: Carotid Duplex (Normal carotids bilaterally.) - 01/13/2017 Abd/Pelvis CT (Right renal 8 cm mass most likely renal cell cancer.) - 11/20/2016 Review of Systems Review of Systems: All systems reviewed & are unremarkable except as noted in HPI and below Cardiovascular: Cardiovascular: Reports as per HPI, Denies chest pain, Denies irregular heart rhythm, Denies leg edema and Reports lightheadedness Respiratory: Respiratory: Reports as per HPI and Denies dyspnea Gastrointestinal: Gastrointestinal: Reports as per HPI and Denies abdominal pain Genitourinary: Genitourinary: Reports as per HPI and Denies dysuria Musculoskeletal: Musculoskeletal: Reports as per HPI Neurologic: Reports as per HPI, Reports dizziness and Denies syncope [facility] Past Medical History Medical History Absent kidney Arthritis Asthma Atrial fibrillation BMI 45.0-49.9, adult Cancer of kidney Cerebral hemorrhage Chronic low back pain Clear cell carcinoma of right kidney Depressive disorder Essential hypertension Fall with injury History of cardioversion Hypertensive heart disease with heart failure Moderate persistent asthma Morbid obesity Myocardial infarction Post concussion syndrome Rosacea Shortn
[2023-03-17] MEDS: HYDROcodone/acetaminophen (*CRX) 5-325 MG TABLET 1 TAB PO ×2 (13:08→21:02)
--- NOTE | 2023-03-17 13:38 | PC.NURSE ---
Karoline, sister, presented to patient's room mid morning. Sister stated her concerns related to his diagnosis, medications, and consults. She showed me his recent discharge from [facility], including medications. DENAE Francis was notified prior to her arrival about this; sister spoke to latricia Orellana RN via telephone. I let her know I would contact hospitalist again.
--- NOTE | 2023-03-17 15:42 | PM.IMPN ---
Progress Note: A&P Assessment and Plan (1) Near syncope: Code(s): R55 - Syncope and collapse Status: Acute Assessment and Plan: Most likely related to the Vasovagal maneuver could also be related to dehydration and heat cardiology consult no further cardiac workup indicated Head CT stable (2) Glioblastoma: Code(s): C71.9 - Malignant neoplasm of brain, unspecified Status: Acute Assessment and Plan: FOLLOW-UP IN OUTPATIENT SETTING Stable (3) Traumatic brain injury: Qualifiers: Encounter type: sequela Loss of consciousness presence/duration: without LOC Qualified Code(s): S06.9X0S - Unspecified intracranial injury without loss of consciousness, sequela Code(s): S06.9XAA - Unspecified intracranial injury with loss of consciousness status unknown, initial encounter Status: Acute Assessment and Plan: Chronic Seems to be at baseline (4) Chronic pain associated with significant psychosocial dysfunction: Code(s): G89.4 - Chronic pain syndrome Status: Acute Assessment and Plan: Pain medication ordered (5) Obesity: Qualifiers: Obesity type: unspecified obesity type Obesity classification: unspecified obesity classification Serious obesity comorbidity presence: unspecified whether serious comorbidity present Qualified Code(s): E66.9 - Obesity, unspecified Code(s): E66.9 - Obesity, unspecified Status: Acute Assessment and Plan: BMI 39.1 Life style and caloric dose (6) Atrial fibrillation: Qualifiers: Atrial fibrillation type: paroxysmal Qualified Code(s): I48.0 - Paroxysmal atrial fibrillation Code(s): I48.91 - Unspecified atrial fibrillation Status: Acute Assessment and Plan: Currently in in SR Continue Xarelto Stable Plan patient's sister was concerned about the drugs that he was prescribed upon discharge from [facility]. Tried to talk to her about those medications however is pretty difficult to explain medications to her. Asked her about calling [facility] she stated that she did and he is discharged they told her that they cannot give her any further advice. He was also post follow-up with Dr. Betancourt the primary however he was unable to go due to current events. Review of systems was obtained however it does seem to be functional verses iatrogenic. He also seems to be getting his information from the family in the room. It seems to get a bit exciting when it does not seem to agree. Time Spent With Patient Time: 53 minutes Time with patient: Greater than 35 minutes Subjective Date/time seen: 03/17/231114 Interval history: 03/17/231114 Patient was lying in bed. He said he was having little bit of pain in the back of his head he also stated that he was lightheaded and dizzy. He denies any current chest pain, shortness a breath, nausea, diarrhea constipation. He also stated that his hips hurt. It was slightly hard to get a good review of systems. His sister was present and spoke with me about the discharge summary that she received a couple of days ago from [facility]. She was concerned about medications that were on the list however were not called in. It was really hard to talk to her about those medications or but orders as she was not really receptive. For example patient was discharged on sodium tabs however the sodium tabs were never called in so she was concerned because she stated that his sodium is not normal without the sodium tabs. Tried to explain her that sodium was 132 today but he does need the sodium tabs and she told me was a sodium tabs were there to reduce the edema in his brain. She is also upset because she feels that the patient needs pain medicine however explain her that the patient denied pain. She stated that he is unable to tell us and that she sh
--- NOTE | 2023-03-17 17:15 | PM.CNNEP ---
Assessment and Plan Assessment and plan (1) Hyponatremia: Code(s): E87.1 - Hypo-osmolality and hyponatremia Status: Acute Assessment and Plan: new issue/finding since recent hospitalization at [facility] earlier this month sodium dropped to as low as 127mmol/L multiple risk factors for low sodium: malignancy (glioblastoma) recent brain surgery history of TBI diuretic use narcotic/pain meds known hx of asthma evaluation (at [facility]) NOT consistent with SIADH unclear if normal saline IVF attempted but did respond to 3% saline, fluid restriction, and salt tabs apparent goal of therapy was to keep sodium > 135 (due to recent neurosurgery??) discharged on sodium tabs 2grams tid plan was also to wean off Florinef as well will resume fluid restriction depending on trend of sodium, may need to restart salt tabs continue to monitor sodium Greater than 20 min was spent in detail review of his electronic medical records particularly from his recent discharge from [facility] and [facility] regarding his history of hyponatremia, evaluation and testing regarding this condition, and subsequent treatment/interventions. I will continue to follow the patient with you while he remains hospitalized make further recommendations as deemed necessary. Thank you for allowing me to participate in the care this patient. History of Present Illness Reason for Consult Consult date: 03/17/23 Reason for consult: hyponatremia Chief Complaint Chief complaint: near syncope History of Present Illness Narrative: Most of the history that I have obtained is from review of the electronic medical record as well as previous documentation regarding his recent hospitalization at [facility] as well as [facility] as the patient is unable to provide me with those details. The patient is a 58-year-old male with a past medical history as outlined below who was recently discharged from [facility] who presented to [facility] Emergency room from his primary care physician's office after he experienced an episode near-syncope. Apparently, while at his primary care physician's office, the patient experienced a sensation of lightheadedness in association with possible skipped beats. given his lightheadedness, he was lowered to the ground but he never apparently loss consciousness. Once he was laid on the ground, his symptoms seemed to martell but there was some concern that perhaps maybe he had significant bradycardia or an abnormal heart rhythm the lead to his symptoms. He is known to have a documented history of atrial fibrillation. He was subsequently transferred to the ER for further assessment Workup and evaluation emergency room demonstrated the patient no apparent distress and he did not have any further episodes of lightheadedness while in the emergency room. Workup and evaluation emergency room demonstrated no significant abnormalities on blood work and imaging including CT scan of his head was only significant for post surgical changes regarding his recent craniotomy at [facility]. There was no evidence of ischemia by EKG or troponins but given his recent hospitalization and stay at rehab coupled with his apparent deconditioning and near-syncope episode, he was admitted the hospital for further evaluation and therapy. Since his admission, he has been seen by Cardiology with no further evaluation/intervention from their perspective. His recent a.m. labs show mild hyponatremia but this apparently has been an issue that was noted on his recent hospitalization at [facility]. Renal consultation was requested with regard to his hyponatremia. From review of the records that I was able to obtain, the patient had a normal sodium level prior to February of 2023 and his sodium level did drop postoperatively after his
[2023-03-17] MEDS: TAMSULOSIN HCL 0.4 MG CAPSULE PO (17:45)
[2023-03-17] MEDS: FAMOTIDINE 20 MG TABLET 40 MG PO (17:46)
[2023-03-17] MEDS: RIVAROXABAN 20 MG TABLET BY MOUTH (17:48)
[2023-03-18] VITALS (12 sets, daily range): BP systolic 103–128; BP diastolic 62–89; PULSE 60–79; RESP 16–22; TEMP 37.1–37.5; O2SAT 95–99
[2023-03-18 07:23] LABS: Hematocrit 38.5 % (42.0-52.0); Hemoglobin 12.5 g/dL (14.0-18.0); Mean Corpuscular HGB Conc 32.5 g/dl (32-36); Mean Corpuscular Hemoglobin 30.3 pg (26-34); Mean Corpuscular Volume 93.4 fl (80-100); Mean Platelet Volume 7.5 fl (7.4-10.4); Platelet Count Result 119 k/mm3 (150-375); Red Blood Count 4.12 M/mm3 (4.6-6.20); Red Cell Distribution Width 15.3 % (11.5-14.5); White Blood Count 4.2 K/mm3 (4.5-10.0)
[2023-03-18 07:35] LABS: Alanine Aminotransferase 23 U/L (6-50); Albumin Level 2.7 g/dL (3.5-5.1); Alkaline Phosphatase 78 U/L (38-126); Anion Gap 2 mmol/L (8-16); Aspartate Amino Transferase 19 U/L (17-59); Bilirubin,Total 0.9 mg/dL (0.2-1.3); Blood Urea Nitrogen 14 mg/dL (9-20); Calcium 7.4 mg/dL (8.4-10.2); Carbon Dioxide 28 mmol/L (22-30); Chloride 104 mmol/L (98-107); Creatine Kinase 21 U/L (55-170); Estimated CRCL calculation 100 ml/min; Estimated Glomerular Filt Rate > 60; Glucose 96 mg/dL (65-110); Potassium 3.9 mmol/L (3.4-5.0); Sodium 134 mmol/L (137-145)
[2023-03-18] MEDS: MONTELUKAST SODIUM 10 MG TABLET BY MOUTH (08:26)
[2023-03-18] MEDS: AMIODARONE HCL 200 MG TABLET BY MOUTH (08:26)
[2023-03-18] MEDS: levETIRAcetam 500 MG TABLET PO (08:27)
[2023-03-18] MEDS: CHOLECALCIFEROL 1,000 UNITS TABLET 2000 UNITS PO (08:27)
[2023-03-18] MEDS: HYDROcodone/acetaminophen (*CRX) 5-325 MG TABLET 1 TAB PO (09:23)
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
--- NOTE | 2023-03-18 14:30 | P.PNNP_ITS ---
Progress Note: A&P Assessment and Plan (1) Hyponatremia: Code(s): E87.1 - Hypo-osmolality and hyponatremia Status: Acute Assessment and Plan: * new issue/finding since recent hospitalization at [facility] earlier this month * sodium dropped to as low as 127mmol/L * multiple risk factors for low sodium: * malignancy (glioblastoma) * recent brain surgery * history of TBI * diuretic use * narcotics/pain meds * pain * known hx of asthma * evaluation (at [facility]) NOT consistent with SIADH * unclear if normal saline IVFs attempted but did respond to 3% saline, fluid restriction, and salt tabs * apparent goal of therapy was to keep sodium > 135 (due to recent neurosurgery??) * discharged on sodium tabs 2grams tid * plan was also to wean off Florinef as well * discontinue fluid restriction per POA request * restarted on salt tabs * may not need frequency/dosage as on discharge - wean salt tabs if possible * follow serum sodiums Not much else to add from renal perspective -- will continue to follow from a distance. Subjective Date/time seen: 03/18/23 14:30 Interval history: Follow-up for hyponatremia. No apparent distress noted at this time; appears in good spirits; no issue s/events overnight or earlier this morning; sodium level stable if not better by AM labs; no other acute complaints or concerns voiced currently; he is hoping for discharge soon. Exam Narrative: General: WD/WN male in NAD Heart: normal S1 and S2; no rub Lungs: clear to auscultation Abdomen: soft, nontender, nondistended, positive bowel sounds Extremities: no cyanosis or clubbing; no edema Skin: warm and dry Objective Data Vital Signs Vital Signs: Vital Signs Temp Pulse Resp BP Pulse Ox O2 Del Method 03/18/23 12:00 71 03/18/23 08:25 Room Air 03/18/23 08:25 64 03/18/23 08:34 99 Room Air 03/18/23 08:26 60 03/18/23 06:00 98.7 F 70 18 112/79 99 03/18/23 04:00 68 03/18/23 00:00 71 03/17/23 20:00 77 03/17/23 20:00 85 20 97 Room Air 03/17/23 22:00 98.1 F 85 20 118/76 97 03/17/23 16:00 76 Intake/Output Intake/Output: Intake & Output 03/15/23 03/16/23 03/17/23 03/18/23 23:59 23:59 23:59 23:59 Intake Total 1048 1119 Output Total 1150 Balance -102 1119 Meds/Results Medications: Active Medications Generic Name Dose Route Start Last Admin Trade Name Freq PRN Reason Stop Dose Admin Acetaminophen 650 mg 03/16/23 19:53 Acetaminophen 325 Mg Tablet PO Q6H PRN Mild Pain (1-3) or Fever Albuterol 2 puff 03/17/23 01:27 Albuterol Sulfate (*Sp) Aerosol 1 Puff INHALATION Q4-6H PRN shortness of breath or wheezing Amiodarone HCl 200 mg 03/17/23 08:00 03/18/23 08:26 Amiodarone Hcl 200 Mg Tablet BY MOUTH 200 mg DAILY@0800 [facility] Administration Hydrocortisone 1 applic 03/18/23 21:00 Hydrocortisone 2.5% Cream 30 Gm Tube TOPICAL Q12HR [facility] Ceftriaxone Sodium 1 gm in 50 mls @ 100 mls/hr 03/17/23 21:05 03/17/23
--- NOTE | 2023-03-18 14:30 | PM.PNNEP ---
Progress Note: A&P Assessment and Plan (1) Hyponatremia: Code(s): E87.1 - Hypo-osmolality and hyponatremia Status: Acute Assessment and Plan: new issue/finding since recent hospitalization at [facility] earlier this month sodium dropped to as low as 127mmol/L multiple risk factors for low sodium: malignancy (glioblastoma) recent brain surgery history of TBI diuretic use narcotics/pain meds pain known hx of asthma evaluation (at [facility]) NOT consistent with SIADH unclear if normal saline IVFs attempted but did respond to 3% saline, fluid restriction, and salt tabs apparent goal of therapy was to keep sodium > 135 (due to recent neurosurgery??) discharged on sodium tabs 2grams tid plan was also to wean off Florinef as well discontinue fluid restriction per POA request restarted on salt tabs may not need frequency/dosage as on discharge - wean salt tabs if possible follow serum sodiums Not much else to add from renal perspective -- will continue to follow from a distance. Subjective Date/time seen: 03/18/23 14:30 Interval history: Follow-up for hyponatremia. No apparent distress noted at this time; appears in good spirits; no issues/events overnight or earlier this morning; sodium level stable if not better by AM labs; no other acute complaints or concerns voiced currently; he is hoping for discharge soon. Exam Narrative: General: WD/WN male in NAD Heart: normal S1 and S2; no rub Lungs: clear to auscultation Abdomen: soft, nontender, nondistended, positive bowel sounds Extremities: no cyanosis or clubbing; no edema Skin: warm and dry Objective Data Vital Signs Vital Signs: Vital Signs Temp Pulse Resp BP Pulse Ox O2 Del Method 03/18/23 12:00 71 03/18/23 08:25 Room Air 03/18/23 08:25 64 03/18/23 08:34 99 Room Air 03/18/23 08:26 60 03/18/23 06:00 98.7 F 70 18 112/79 99 03/18/23 04:00 68 03/18/23 00:00 71 03/17/23 20:00 77 03/17/23 20:00 85 20 97 Room Air 03/17/23 22:00 98.1 F 85 20 118/76 97 03/17/23 16:00 76 Intake/Output Intake/Output: Intake & Output 03/15/23 03/16/23 03/17/23 03/18/23 23:59 23:59 23:59 23:59 Intake Total 1048 1119 Output Total 1150 Balance -102 1119 Meds/Results Medications: Active Medications Generic Name Dose Route Start Last Admin Trade Name Freq PRN Reason Stop Dose Admin Acetaminophen 650 mg 03/16/23 19:53 Acetaminophen 325 Mg Tablet PO Q6H PRN Mild Pain (1-3) or Fever Albuterol 2 puff 03/17/23 01:27 Albuterol Sulfate (*Sp) Aerosol 1 Puff INHALATION Q4-6H PRN shortness of breath or wheezing Amiodarone HCl 200 mg 03/17/23 08:00 03/18/23 08:26 Amiodarone Hcl 200 Mg Tablet BY MOUTH 200 mg DAILY@0800 [facility] Administration Hydrocortisone 1 applic 03/18/23 21:00 Hydrocortisone 2.5% Cream 30 Gm Tube TOPICAL Q12HR [facility] Ceftriaxone Sodium 1 gm in 50 mls @ 100 mls/hr 03/17/23 21:05 03/17/23 21:51 Rocephin 1 Gm/Ns 50 Ml IVPB 100 mls/hr [facility] Administration Levetiracetam 1,000 mg 03/18/23 21:00 Levetiracetam 500 Mg Tablet PO Q12HR [facility] Miconazole Nitrate 1 applic 03/18/23 21:00 Miconazole Nitrate 2% Cream 30 Gm Tube TOPICAL Q12HR [facility] Montelukast Sodium 10 mg 03/17/23 09:00 03/18/23 08:26 Montelukast Sodium 10 Mg Tablet BY MOUTH 10 mg DAILY [facility] Administration Oxycodone HCl 5 mg 03/18/23 13:35 Oxycodone Hcl (*Crx) 5 Mg Tab Ir PO Q6H [facility] Rivaroxaban 20 mg 03/17/23 17:00 03/17/23 17:48 Rivaroxaban 20 Mg Tablet BY MOUTH 20 mg DAILY@1700 [facility] Administration Sodium Chloride 2 gm 03/18/23 17:00 Sodium Chloride 1 Gm Tablet PO TID [facility] Vitamin D 2,000 units 03/18/23 09:00 03/18/23 08:27 Cholecalciferol 1,000 Units Tablet PO 2,000 units WeSa@0900 [facility] Administration Rad
--- NOTE | 2023-03-18 15:17 | PC.NURSE ---
Pt's pain med were changed with scheduled Roxicodone ordered. I attempted to administer the scheduled med at the scheduled time; however, pt refused stating that he was not having any pain and that he doesn't want pain pills when he is not in pain. Med held. Pt instructed to call me if he does have pain.
[2023-03-18] MEDS: oxyCODONE HCL (*CRX) 5 MG TAB IR PO ×2 (16:40→20:40)
[2023-03-18] MEDS: RIVAROXABAN 20 MG TABLET BY MOUTH (16:40)
[2023-03-18] MEDS: SODIUM CHLORIDE 1 GM TABLET 2 GM PO (16:40)
[2023-03-18] MEDS: MICONAZOLE NITRATE 2% CREAM 30 GM TUBE 1 APPLIC TOPICAL (20:40)
[2023-03-18] MEDS: levETIRAcetam 500 MG TABLET 1000 MG PO (20:40)
[2023-03-18] MEDS: HYDROCORTISONE 2.5% CREAM 30 GM TUBE 1 APPLIC TOPICAL (20:41)
[2023-03-19] MEDS: oxyCODONE HCL (*CRX) 5 MG TAB IR PO ×3 (01:13→12:56)
[2023-03-19 04:00] VITALS: PULSE 69
[2023-03-19 06:00] VITALS: BP 121/62; PULSE 78; RESP 20; TEMP 37.4; O2SAT 97
[2023-03-19 06:25] LABS: Hemoglobin 12.9 g/dL (14.0-18.0); Mean Corpuscular HGB Conc 33.1 g/dl (32-36); Mean Corpuscular Hemoglobin 31.1 pg (26-34); Mean Platelet Volume 7.6 fl (7.4-10.4); Platelet Count Result 127 k/mm3 (150-375); Red Blood Count 4.15 M/mm3 (4.6-6.20); Red Cell Distribution Width 15.2 % (11.5-14.5); White Blood Count 4.1 K/mm3 (4.5-10.0)
[2023-03-19 06:32] LABS: Anion Gap 3 mmol/L (8-16); Blood Urea Nitrogen 14 mg/dL (9-20); Calcium 7.8 mg/dL (8.4-10.2); Carbon Dioxide 29 mmol/L (22-30); Chloride 102 mmol/L (98-107); Estimated CRCL calculation 100 ml/min; Estimated Glomerular Filt Rate > 60; Glucose 97 mg/dL (65-110); Sodium 134 mmol/L (137-145)
[2023-03-19 08:00] VITALS: PULSE 63
[2023-03-19 08:24] VITALS: PULSE 82
[2023-03-19] MEDS: AMIODARONE HCL 200 MG TABLET BY MOUTH (08:24)
[2023-03-19] MEDS: MONTELUKAST SODIUM 10 MG TABLET BY MOUTH (08:24)
[2023-03-19] MEDS: SODIUM CHLORIDE 1 GM TABLET 2 GM PO ×3 (08:24→16:35)
[2023-03-19] MEDS: HYDROCORTISONE 2.5% CREAM 30 GM TUBE 1 APPLIC TOPICAL (08:26)
[2023-03-19] MEDS: MICONAZOLE NITRATE 2% CREAM 30 GM TUBE 1 APPLIC TOPICAL (08:26)
[2023-03-19] MEDS: levETIRAcetam 500 MG TABLET 1000 MG PO (08:26)
--- NOTE | 2023-03-19 09:38 | PM.DS ---
DS: Admitting Diagnosis Discharge Date 03/19/2023 Admitting Diagnosis Near syncopal episode DS: Discharge Diagnosis Discharge Diagnosis (1) Near syncope: Code(s): R55 - Syncope and collapse Status: Acute Assessment and Plan: TELEMETRY UNREVEALING. CARDIOLOGY CONSULTATION REVIEWED POSSIBLY VASOVAGAL DUE TO HEAT AND EXERTION WELL UTI (2) Glioblastoma: Code(s): C71.9 - Malignant neoplasm of brain, unspecified Status: Acute Assessment and Plan: 03/18/23 DISCUSSED WITH SISTER AT LENGTH AT PROGNOSIS IS VERY POOR 03/18/23 DISCUSSED THE NEGATIVE IMPACT OF CHRONIC NARCOTIC THERAPY AND HIS OTHER COMORBIDITIES ON HIS PROGNOSIS (3) UTI (urinary tract infection), bacterial: Code(s): N39.0 - Urinary tract infection, site not specified; A49.9 - Bacterial infection, unspecified Status: Acute Assessment and Plan: ceftriaxone, start date 03/17/2023, RECEIVED 2 DOSES 03/19/23 STARTED BACTRIM DS BID FOR 5 DAY (7 DAYS TOTAL ANTIBIOTIC THERAPY) FOR PROTEUS MIRABILIS (4) Spinal stenosis, lumbar region with neurogenic claudication: Code(s): M48.062 - Spinal stenosis, lumbar region with neurogenic claudication Status: Acute Assessment and Plan: CONTINUE HIS HOME SCHEDULED OXYCODONE 03/18/23 DISCUSSED POSSIBLE TAPER AFTER DISCHARGE (5) Traumatic brain injury: Qualifiers: Encounter type: sequela Loss of consciousness presence/duration: without LOC Qualified Code(s): S06.9X0S - Unspecified intracranial injury without loss of consciousness, sequela Code(s): S06.9XAA - Unspecified intracranial injury with loss of consciousness status unknown, initial encounter Status: Acute Assessment and Plan: PT AND OT EVAL WITH INDEPENDENT ADL'S, PER RN WAS ACTUALLY HEAVY ASSIST OF ONE RESUME HOME SPEECH THERAPY AFTER DISCHARGE (6) Hypertensive heart/kidney disease w/chronic kidney disease stage III: Code(s): I13.10 - Hypertensive heart and chronic kidney disease without heart failure, with stage 1 through stage 4 chronic kidney disease, or unspecified chronic kidney disease; N18.30 - Chronic kidney disease, stage 3 unspecified Status: Acute Assessment and Plan: 03/18 & 03/19/23 CREATININE 1.0 (7) PAF (paroxysmal atrial fibrillation): Code(s): I48.0 - Paroxysmal atrial fibrillation Status: Acute Assessment and Plan: Continue amiodarone (8) Pancytopenia: Code(s): D61.818 - Other pancytopenia Status: Acute Assessment and Plan: STABLE SINCE POST OP FROM CRANIOTOMY AT [facility] DS: Summary Hospital Course Reason for hospitalization: NEAR SYNCOPE Hospital Course: THIS PLEASANT 58-YEAR-OLD GENTLEMAN WAS ADMITTED MARCH 16 AFTER EXPERIENCING A NEAR SYNCOPAL EPISODE AT HIS PRIMARY PHYSICIAN'S OFFICE. HE WAS HOT AND WALKING WITH HIS WALKER, SAT DOWN AND ALMOST PASSED OUT. 911 WAS CALLED AND HE WAS BROUGHT TO THE EMERGENCY DEPARTMENT. HE HAD SINUS BRADYCARDIA. VITAL SIGNS WERE STABLE. LABS WERE UNREMARKABLE NOTED EXCEPT FOR ABNORMAL URINALYSIS. HE HAD HAD URINARY CATHETER IN HOSPITAL EARLIER THIS MONTH AND AT REHAB AROUND THE TIME OF HIS CRANIOTOMY FOR RIGHT-SIDED GLIOBLASTOMA. HE WAS STARTED ON CEFTRIAXONE MARCH 17 AND URINE GREW PROTEUS MIRABILIS. HE WAS TRANSITION TO BACTRIM DS ON DAY OF DISCHARGE. HE RECEIVED HIS 1ST DOSE IN THE HOSPITAL AND TOLERATED IT WELL. HE WAS TO RETURN TO HIS APARTMENT UPON DISCHARGE WITH FAMILY OR PAID CRTS STAYING WITH HIM 24 HOURS A DAY. HE WAS ALSO TO RESUME HIS HOME HEALTH PT OT AND ST. DISCHARGE PLANS WERE DISCUSSED WITH HIS SISTER BRITNI BY PHONE ON THE MORNING OF DISCHARGE. NOTE: HE WAS SEEN BY CARDIOLOGY AND NEUROLOGY CONSULTANTS DURING HIS HOSPITALIZATION. Status at Discharge Functional status at discharge: uses cane/walker Overall status at discharge: patient is progressing back to baseline Time Spent with Patient Time attestation: Total time spen
[2023-03-19] MEDS: SULFAMETHOXAZOLE/TRIMETHOPRIM 800/160 MG DS TABLET 1 TAB PO (10:25)
--- NOTE | 2023-03-19 11:36 | WPDNEURCNPN ---
Consult date: 03/19/23 HPI: Jack Gates Jr. is a 58 year old male admitted to the hospital subsequent to a near syncopal episode at the primary physician's office when he was hot and walking with his walker sat down and almost passed out 911 was called and he was brought to the emergency department noted to have sinus bradycardia routine lab studies were normal patient has had the urinary catheter placed in earlier this month at rehab after his craniotomy for the right-sided glioblastoma he was started on ceftriaxone on 17 of March for the urine culture positive for the Proteus mirabilis then transition to Bactrim DS which she received in the hospital as a 1st dose he was taken to his apartment subsequently discharged. At present patient is already discharge from the primary physician and at this stage his using the cane and walk his examination remains unchanged [facility] Past Medical History Medical History Absent kidney Arthritis Asthma Atrial fibrillation BMI 45.0-49.9, adult Cancer of kidney Cerebral hemorrhage Chronic low back pain Clear cell carcinoma of right kidney Depressive disorder Essential hypertension Fall with injury History of cardioversion Hypertensive heart disease with heart failure Moderate persistent asthma Morbid obesity Myocardial infarction Post concussion syndrome Rosacea Shortness of breath Sleep apnea Surgical History Surgical History History of arthroplasty of right ankle History of cardiac catheterization History of nephrectomy Family History Family History Mother Family history of cardiovascular disease Patient's mother is in good health Father Family history of congestive heart failure Acute myocardial infarction Sibling Patient's sister is in good health Social History Social History Smoking status: Former smoker Tobacco type: cigarettes Smokeless tobacco user: chewing tobacco Second hand tobacco smoke exposure: No Smoking end date: 07/24/96 Alcohol intake: former Drinks per week: 2 Alcohol use details: rarely Substance use: never Substance use type: does not use Lack of Transportation: No Lack of Food: Never True Current Housing: I Have Housing Concerned About Future Housing: No Difficulty Paying Gas/Electric Bills: No Difficulty Paying for Meds: No Currently Unemployed: No Education: High School Diploma/GED Difficulty w/ Childcare or Family Care: No Living arrangements: alone Occupation/Education: unemployed Gender identity (if verbalized by the patient): Male Sexual Orientation (if Verbalized by the Patient): Straight or Heterosexual Spiritual care concerns: No Agree to blood products: Yes Meds Home Medications and Allergies Home Medications Medication Instructions Recorded Confirmed Type cholecalciferol (vitamin D3) 50 50 mcg PO WEEKLY 03/05/21 03/17/23 History mcg (2,000 unit) capsule albuterol sulfate 90 mcg/actuation 2 puff inhalation Q4-6H PRN 02/25/22 03/17/23 Rx aerosol inhaler (ProAir HFA) shortness of breath or wheezing #8.5 grams furosemide 40 mg tablet 20 mg PO DAILY 09/01/22 03/17/23 History Symbicort 160 mcg-4.5 See Rx Instructions .Route 09/21/22 03/17/23 Rx mcg/actuation HFA aerosol inhaler .COMPLEX #10.2 grams (budesonide-formoterol) montelukast 10 mg tablet See Rx Instructions .Route 09/21/22 03/17/23 Rx .COMPLEX #90 tabs famotidine 40 mg tablet (Pepcid) 40 mg PO QPM #90 tabs 12/16/22 03/17/23 Rx amiodarone 200 mg tablet See Rx Instructions .Route 12/20/22 03/17/23 Rx .COMPLEX #90 tabs rivaroxaban 20 mg tablet (Xarelto) See Rx Instructions .Route 12/20/22 03/17/23 Rx .COMPLEX #90 tabs oxycodone-acetaminophen 10 mg-325 1 tablet PO Q8H PRN pain 15 days 0
[2023-03-19 14:00] VITALS: BP 101/78; PULSE 77; RESP 22; TEMP 36.4; O2SAT 98
[2023-03-19] MEDS: RIVAROXABAN 20 MG TABLET BY MOUTH (16:35)
== END 2023-03-19 19:15 | disposition home health service (06) | DRG 690 ==
LOC: ANHED 19:19 → ANH3MEDSUR 21:25
PROVIDERS: Internal Medicine Nephrology; Nurse Practitioner; Admitting Provider Student in an Organized Health Care Education/Training Program; Emergency Provider Student in an Organized Health Care Education/Training Program; PCP Family Medicine; Visit Provider Internal Medicine
DX: N39.0 Urinary tract infection, site not specified (principal); D61.818 Other pancytopenia; C71.9 Malignant neoplasm of brain, unspecified; I13.0 Hypertensive heart and chronic kidney disease with heart failure and stage 1 through stage 4 chronic kidney disease, or unspecified chronic kidney disease; I50.32 Chronic diastolic (congestive) heart failure; E87.1 Hypo-osmolality and hyponatremia; B96.4 Proteus (mirabilis) (morganii) as the cause of diseases classified elsewhere; R55 Syncope and collapse; R00.1 Bradycardia, unspecified; E66.01 Morbid (severe) obesity due to excess calories; E78.5 Hyperlipidemia, unspecified; F32.A Depression, unspecified; G47.30 Sleep apnea, unspecified; G89.29 Other chronic pain; I48.0 Paroxysmal atrial fibrillation; I25.2 Old myocardial infarction; J45.909 Unspecified asthma, uncomplicated; M48.062 Spinal stenosis, lumbar region with neurogenic claudication; M19.90 Unspecified osteoarthritis, unspecified site; N18.30 Chronic kidney disease, stage 3 unspecified; Z90.5 Acquired absence of kidney; Z85.528 Personal history of other malignant neoplasm of kidney; Z79.891 Long term (current) use of opiate analgesic; Z96.661 Presence of right artificial ankle joint; Z68.39 Body mass index [BMI] 39.0-39.9, adult; Z87.891 Personal history of nicotine dependence; Z79.01 Long term (current) use of anticoagulants; Z87.820 Personal history of traumatic brain injury
CPT/HCPCS: 36415; 70450; 71045; 80048; 80053; 81001; 82550; 82948; 83735; 84443; 84484; 85025; 85027; 85610; 85730; 86850; 86900; 86901; 87077; 87086; 87088; 87186; 93005; 96365; 97161; 97165; 99285; A9270; G0378; J0696

== ENCOUNTER 2023-03-28 08:38 | Outpatient (CLI) | payer MEDICARE, MEDICAID, SELFPAY ==
--- NOTE | 2023-03-28 11:03 | WPDNEUROLOGY ---
Neurology EEG Report General Information Date of Study: 03/28/23 TEST Routine EEG DIAGNOSIS Abnormal involuntary movements CONDITION OF RECORDING Awake, drowsy EEG NUMBER [id number] CLINICAL HISTORY Patient has a history of brain tumor in the right temporal region. Patient reports he was having involuntary twitching in his left leg mainly at night, but it has stopped. EEG DESCRIPTION During the awake state with eyes closed the background consists of 9-10 Hz posterior dominant rhythm which attenuates appropriately with eye opening. The recording is continuous. There is a well developed anterior-posterior gradient. The background is asymmetric with frequent slowing localized to the right temporal region in the range of delta and theta waves. With drowsiness there is waxing and waning of the dominant rhythm with eventual replacement by a mixture of beta, alpha, and theta activity. Patient does not enter stage II sleep. There are no epileptiform discharges or seizures during this recording. Photic stimulation did not elicit any abnormal photoparoxysmal response. IMPRESSION This is a abnormal routine EEG due to the presence of focal slowing in the right temporal region, which is suggestive of focal cerebral dysfunction. There are no electrographic seizures identified, nor are there any epileptiform discharges. Clinical correlation is recommended.
== END 2023-03-28 08:39 | disposition home or self-care (01) ==
PROVIDERS: PCP Family Medicine; Visit Provider Family Medicine
DX: R25.9 Unspecified abnormal involuntary movements (principal); R94.01 Abnormal electroencephalogram [EEG]
CPT/HCPCS: 95816

== ENCOUNTER 2023-05-01 14:46 | Outpatient (RCR) | payer MEDICARE, MEDICAID, SELFPAY ==
--- NOTE | 2023-05-01 15:47 | OPREHPOC ---
Outpatient Therapy Plan of Care This is a Multidisciplinary Plan of Care that may contain components documented by all disciplines (PT, OT, and ST.) PT Problem 1 PT Problem #1 Knowledge Deficit PT Goal 1 Goal 1* indep with HEP PT Problem 2 PT Problem #2 Pain PT Goal 1 Goal 1* decrease pain L hip/thigh to 4/10 at worst with increased activity PT Problem 3 PT Problem #3 Impaired Functional Mobility PT Goal 1 Goal 1* 2 minute walking test distance of 300' 2* Tinetti balance score of 26/28 to improve mobility and decrease fall risk 3* pt report using the cane in his apartment PT Problem 4 PT Problem #4 Impaired Strength PT Goal 1 Goal 1* pt able to perform 20 reps of standing R and L LE exercises with 1 UE support
--- NOTE | 2023-05-01 15:47 | PTOPEVAL1 ---
Assessment and note entered by Carolyn Lucas, PT Evaluation Information Assessment Status Evaluation Diagnosis s/p craniotomy Onset 02-28-23 Subjective Information s/p surgery--sister or nephew are staying with him since surgery; have an electric scooter to use for distances; had in pt Rehab and [facility] PT services doing sitting exercises at home; decreased vision of L eye- no peripheral vision; Prior to surgery: lived alone, with sisters' assist PRN; pt does not drive; used a cane for ambulation and went out into community- active, went to [facility] 5x/wk and did pool exercises. GOAL: walk better, get stronger, get back to pool exercises; Reported Pain Level Pain Score Self Report Additional Pain Score Comments pain range in the past week 0-5/10; L lateral hip > anterior mid- thigh Assessment PT Clinical Summary Jack has the diagnosis of s/p craniotomy. He is to start chemo and radiation treatment later this week. Also has orders for OT eval/treat. He currently uses the wheeled walker and now has family staying with him and assisting him. He has pain in L hip/thigh, with recent injection. Since surgery, he has decreased vision L eye. Prior to surgery, he used a cane and lived alone, with sister assist PRN. He also went to the [facility] 5x/wk for water exercises. With the evaluation: he has decreased LE strength gait and balance skills; Tinetti balance score of 20/28= risk for falls; 2 minute walking test distance of 150'; gait with wheeled walker and small step length, not pass other foot. He has tenderness and spasm over L ITB. Skilled PT services are indicated to increase LE strength, gait and balance skills, to improve mobility and education for home exercises and safety with mobility. Modalities for L ITB/thigh pain. Plan of Care Interventions Gait Training,Manual Therapy,Neuro Re-education, Patient/Caregiver Education,Therapeutic Activities, Therapeutic Exercise,Other Other Interventions belaing, IASTM for L thigh/ITB pain PT Services Indicated Yes
--- NOTE | 2023-05-01 16:38 | PCPTNOTE ---
Pt's sister Bella called prior to pt appt today to discuss him. She is his POA. Her son, Juwan will be bringing pt to therapy today, and he can make decisions for pt also. She stated his brain cancer is terminal, BUT they have not told him that. She feels the goal for his therapy is to get him stronger and keep him mobile and indep as long as able.
--- NOTE | 2023-06-08 11:08 | PTOPDC ---
Assessment and note entered by Carolyn Lucas, PT Discharge Information Assessment PT Clinical Summary PHYSICAL THERAPY DISCHARGE Jack attended the PT evaluation on May 01 and did not return for treatment. The goals were not addressed. Discharge PT services. Plan of Care PT Services Indicated No
== END 2023-06-08 11:37 | disposition home or self-care (01) ==
LOC: ANHPT 14:46
PROVIDERS: PCP Family Medicine
DX: D49.6 Neoplasm of unspecified behavior of brain (principal); Z98.890 Other specified postprocedural states
CPT/HCPCS: 97110; 97161

== ENCOUNTER 2023-05-24 09:43 | Outpatient (CLI) | payer MEDICARE, MEDICAID, SELFPAY ==
[2023-05-24 10:35] LABS: Basophils Percent Auto 0.1 % (0.2-1.2); Hematocrit 43.9 % (42.0-52.0); Hemoglobin 14.9 g/dL (14.0-18.0); Immature Granulocyte Absolute 1.25 K/mm3 (0.00-0.031); Immature Granulocyte Percent A 10.1 % (0-0.5); Lymphocytes Absolute Auto 0.83 K/mm3 (0.9-3.2); Lymphocytes Percent Auto 6.7 % (18.3-44.2); Mean Corpuscular HGB Conc 33.9 g/dl (32-36); Mean Corpuscular Volume 94.2 fl (80-100); Mean Platelet Volume 8.1 fl (7.4-10.4); Monocytes Absolute Auto 0.8 K/mm3 (0.1-0.6); Monocytes Percent Auto 6.7 % (2.6-8.5); Neutrophils Absolute Auto 9.4 K/mm3 (1.3-6.7); Neutrophils Percent Auto 76.4 % (45.5-73.1); Platelet Count Result 145 k/mm3 (150-375); Red Blood Count 4.66 M/mm3 (4.6-6.20); Red Cell Distribution Width 15.9 % (11.5-14.5); White Blood Count 12.4 K/mm3 (4.5-10.0)
[2023-05-24 11:59] LABS: Alanine Aminotransferase 29 U/L (6-50); Albumin Level 3.4 g/dL (3.5-5.1); Alkaline Phosphatase 53 U/L (38-126); Anion Gap 7 mmol/L (8-16); Aspartate Amino Transferase 25 U/L (17-59); Bilirubin,Total 1.3 mg/dL (0.2-1.3); Blood Urea Nitrogen 21 mg/dL (9-20); Calcium 8.7 mg/dL (8.4-10.2); Carbon Dioxide 26 mmol/L (22-30); Chloride 98 mmol/L (98-107); Estimated Glomerular Filt Rate > 60; Glucose 144 mg/dL (65-110); Potassium 4.3 mmol/L (3.4-5.0); Sodium 131 mmol/L (137-145)
== END 2023-05-24 09:44 | disposition home or self-care (01) ==
PROVIDERS: PCP Family Medicine; Visit Provider Internal Medicine Hematology & Oncology
DX: C71.9 Malignant neoplasm of brain, unspecified (principal)
CPT/HCPCS: 36415; 80053; 85025

== ENCOUNTER 2023-06-13 11:46 | Outpatient (CLI) | payer MEDICARE, MEDICAID, SELFPAY ==
[2023-06-13 12:28] LABS: Hematocrit 41.7 % (42.0-52.0); Hemoglobin 14.5 g/dL (14.0-18.0); Mean Corpuscular HGB Conc 34.8 g/dl (32-36); Mean Corpuscular Hemoglobin 32.1 pg (26-34); Mean Corpuscular Volume 92.3 fl (80-100); Mean Platelet Volume 7.7 fl (7.4-10.4); Platelet Count Result 115 k/mm3 (150-375); Red Blood Count 4.52 M/mm3 (4.6-6.20); Red Cell Distribution Width 15.3 % (11.5-14.5); White Blood Count 13.5 K/mm3 (4.5-10.0)
[2023-06-13 12:40] LABS: Band Neutrophils Percent 14 % (0-6); Monocytes Absolute Manual 0.54 K/mm3 (0.1-0.90); Monocytes Percent Manual 4 % (3-9); Neutrophils Absolute Manual 12.55 K/mm3 (1.3-6.7); Neutrophils Percent Manual 79 % (46-73); Platelet Estimate Decreased (Adequate); Schistocytes None Seen (NORMAL); Total Cells Counted 100
[2023-06-13 17:07] LABS: Alanine Aminotransferase 42 U/L (6-50); Albumin Level 3.2 g/dL (3.5-5.1); Alkaline Phosphatase 66 U/L (38-126); Anion Gap 7 mmol/L (8-16); Aspartate Amino Transferase 23 U/L (17-59); Blood Urea Nitrogen 21 mg/dL (9-20); Calcium 8.6 mg/dL (8.4-10.2); Carbon Dioxide 26 mmol/L (22-30); Chloride 96 mmol/L (98-107); Estimated Glomerular Filt Rate > 60; Glucose 142 mg/dL (65-110); Potassium 4.4 mmol/L (3.4-5.0); Sodium 129 mmol/L (137-145)
== END 2023-06-13 11:47 | disposition home or self-care (01) ==
PROVIDERS: Visit Provider Internal Medicine Hematology & Oncology
DX: C71.9 Malignant neoplasm of brain, unspecified (principal)
CPT/HCPCS: 36415; 80053; 85025

== ENCOUNTER 2023-06-20 23:48 | Emergency (ER) | payer MEDICARE, MEDICAID, SELFPAY ==
--- NOTE | 2023-06-20 | ECG_ITS ---
Measurements Intervals [place] Rate: 89 P: 42 NV: 189 QRS: -22 QRSD: 121 T: 48 QT: 351 QTc: 429 Interpretive Statements SINUS RHYTHM INTRAVENTRICULAR CONDUCTION DELAY CANNOT RULE OUT SEPTAL INFARCT, AGE INDETERMINATE BASELINE ARTIFACT- I, II, V1-V2, V4-V6 ABNORMAL ECG COMPARED TO ECG 03/16/2023 16:42:41 SINUS RHYTHM NOW PRESENT Electronically Signed On 06-21-2023 6:24:14 EMPLOYMENT CLERK by Placido Murray D.O.
--- NOTE | ~2023-06-20 | CT_ITS ---
Noncontrast CT scan of the cervical spine Technique: Multiple contiguous axial [address] images of the cervical spine were obtained and rec onstructed in 2D sagittal and coronal planes on the acquisition scanner. Dose reduction technique was used on this scan by utilizing automated exposure control, adjustment of the mA and/or kV according to patient size. The dose-length product (DLP) was 727.20 mGy-cm. Clinical History: Pain Findings: No fractures or dislocations. Unremarkable visualized bony structures. The intervertebral disc spaces are preserved. No prevertebral soft tissue swelling. Impression: No fracture or subluxation of the cervical spine. Reviewed, dictated and finalized at location . D FILLER Impression: No fracture or subluxation of the cervical spine.
--- NOTE | ~2023-06-20 | XR_ITS ---
Portable chest x-ray Comparison: 03/16/2023 Clinical History: Seizure Findings: Probable mild left perihilar haziness. Right lung clear. Cardiomediastinal silhouette is stable. Bones and soft tissues are unremarkable. Impression: Probable left perihilar haziness, nonspecific. Infectious process is not excluded. Stable cardiomegaly. Reviewed, dictated and finalized at location . OFF MACHINE HELPER Impression: Probable left perihilar haziness, nonspecific. Infectious process is not exclud ed. Stable cardiomegaly.
--- NOTE | ~2023-06-20 | CT_ITS ---
CT head without contrast Indication: Seizure COMPARISON: 03/16/2023 Technique: Serial scans were obtained through the brain without the administration of contrast. Dose reduction technique was used on this scan by utilizing automated exposure control and iterative recon struction technique. The dose-length product (DLP) was 756.67 mGy-cm. Findings: There is an increased area cystic change in the medial right temporal lobe, which now measu res 3.7 x 2.6 centimeters in size (axial image 36). There is extensive additional hypodensity through out the right cerebral hemisphere, particularly involving the white matter with additional focal invo lvement in the inferior left frontal lobe. No acute intracranial hemorrhage evident. Ventricles and s ubarachnoid spaces are otherwise stable from prior exam, there is relative compression of the right l ateral ventricle, unchanged, but no midline shift. The visualized paranasal sinuses and mastoid air c ells are clear. Impression: 3.7 x 2.6 cm area of cystic change in the medial right temporal lobe is increased in size from prior exam. This could look increasing postoperative encephalomalacia versus cystic component of glioblasto ma. Extensive hypodensity throughout the right cerebral hemisphere white matter, and focally in the i nferior left frontal lobe, is consistent with post therapy change for glioblastoma. Consider pre and postcontrast MR to better assess for residual/recurrent mass, as indicated. No midline shift. Stable relative compression of the right lateral ventricle. No intracranial hemorrhage. Reviewed, dictated and finalized at [facility]. ITY CONTROL AUDITOR Impression: 3.7 x 2.6 cm area of cystic change in the medial right temporal lobe is increas ed in size from prior exam. This could look increasing postoperative encephalom alacia versus cystic component of glioblastoma. Extensive hypodensity throughou t the right cerebral hemisphere white matter, and focally in the inferior left frontal lobe, is consistent with post therapy change for glioblastoma. Consider pre and postcontrast MR to better assess for residual/recurrent mass, as indic ated. No midline shift. Stable relative compression of the right lateral ventricle. No intracranial hemorrhage.
[2023-06-20 23:46] VITALS: BP 160/109; PULSE 93; RESP 23; TEMP 36.5; O2SAT 97
[2023-06-21] VITALS (31 sets, daily range): BP systolic 96–162; BP diastolic 49–93; PULSE 67–93; RESP 13–18; TEMP 37; O2SAT 93–100
[2023-06-21 00:19] LABS: Basophils Percent Auto 0.1 % (0.2-1.2); Hematocrit 46.8 % (42.0-52.0); Hemoglobin 16.1 g/dL (14.0-18.0); Immature Granulocyte Absolute 2.33 K/mm3 (0.00-0.031); Immature Granulocyte Percent A 15.5 % (0-0.5); Lymphocytes Absolute Auto 0.67 K/mm3 (0.9-3.2); Lymphocytes Percent Auto 4.5 % (18.3-44.2); Mean Corpuscular HGB Conc 34.4 g/dl (32-36); Mean Corpuscular Hemoglobin 32.2 pg (26-34); Mean Corpuscular Volume 93.6 fl (80-100); Mean Platelet Volume 7.9 fl (7.4-10.4); Monocytes Absolute Auto 1.3 K/mm3 (0.1-0.6); Monocytes Percent Auto 8.6 % (2.6-8.5); Neutrophils Absolute Auto 10.7 K/mm3 (1.3-6.7); Neutrophils Percent Auto 71.3 % (45.5-73.1); Nucleated Red Blood Cells Perc 0.3 % (0.0-0.2); Platelet Count Result 123 k/mm3 (150-375); Red Cell Distribution Width 15.3 % (11.5-14.5)
[2023-06-21] MEDS: levETIRAcetam 1000MG/NACL100ML 1,000 MG/100 ML BAG 400 MG IVPB (00:19)
[2023-06-21] MEDS: SODIUM CHLORIDE 0.9% IV 1,000 ML 999 ML IV CONT ×2 (00:19→02:15)
[2023-06-21 00:29] LABS: Prothrombin Time 13.1 Seconds (11.1-14.7)
[2023-06-21 00:30] LABS: Partial Thromboplastin Time 22.4 SECONDS (22.3-36.8)
[2023-06-21 00:33] LABS: Alanine Aminotransferase 53 U/L (6-50); Albumin Level 2.2 g/dL (3.5-5.1); Alkaline Phosphatase 59 U/L (38-126); Anion Gap 11 mmol/L (8-16); Aspartate Amino Transferase 38 U/L (17-59); Bilirubin,Total 1.4 mg/dL (0.2-1.3); Blood Urea Nitrogen 24 mg/dL (9-20); Calcium 8.6 mg/dL (8.4-10.2); Carbon Dioxide 24 mmol/L (22-30); Chloride 86 mmol/L (98-107); Estimated CRCL calculation 116 ml/min; Estimated Glomerular Filt Rate > 60; Glucose 185 mg/dL (65-110); Magnesium 2.3 mg/dL (1.6-2.3); Potassium 5.2 mmol/L (3.4-5.0); Sodium 121 mmol/L (137-145)
[2023-06-21 00:44] LABS: Troponin I 0.031 ng/mL (0.000-0.034)
[2023-06-21 00:58] LABS: Influenza A QL RT-PCR Negative (Negative); Influenza B QL RT-PCR Negative (Negative); RSV RNA, RT-PCR Negative (Negative); SARS-CoV-2 RNA PCR Negative (Negative)
[2023-06-21 01:02] LABS: Anisocytosis 1+ (NORMAL); Atypical Lymphocytes Present; Basophilic Stippling 1+ (NORMAL); Platelet Estimate Adequate (Adequate); Schistocytes None Seen (NORMAL)
[2023-06-21 01:06] LABS: Lactic Acid Reflex 5.4 mmol/L (0.7-2.0)
[2023-06-21 01:06] LABS: Appearance Urine Cloudy (Clear); Bacteria Urine None Seen /hpf; Bilirubin Urine Negative (Negative); Blood Urine Negative (Negative); Color Urine Yellow (Yellow); Glucose Urine UA 1+ mg/dL (Negative); Ketones Urine Negative (Negative); Leukocyte Esterase Ur Negative LEU/UL (Negative); Nitrate Urine Negative (Negative); Protein Urine Trace mg/dL (Negative); RBC Urine 0-2 /hpf (0-2); Specific Grav Ur 1.019 (1.001-1.035); Squamous Epithelial Cell Urine None seen /hpf (Few); WBC Urine 0-5 /hpf; pH Urine 6.5 (5.0-9.0)
[2023-06-21 01:20] LABS: Add Urine Microscopic? YES
--- NOTE | 2023-06-21 02:38 | ED.GENADULT ---
HPI - General Adult General Chief complaint: Seizure Stated complaint: NEW ONSET SEIZURE Time Seen by Provider: 06/20/23 23:50 History of Present Illness HPI narrative: Patient is 58-year-old gentleman presents emerged from with chief complaint of seizure. Per the EMS report the patient has prior history of glioblastoma multiform it has had previous surgery and also has had radiation therapy the patient reports that the has had 2 generalized seizures at home the patient has also been somewhat drowsy afterwards but will awake and answer questions Related Data Home Medications Medication Instructions Recorded Confirmed cholecalciferol (vitamin D3) 50 50 mcg PO WEEKLY 03/05/21 05/23/23 mcg (2,000 unit) capsule Florinef 0.1 mg PO DAILY 03/17/23 05/23/23 hydrocortisone 2.5 % topical cream 2.5 applic topical BID 03/17/23 05/23/23 ondansetron 4 mg disintegrating 4 mg PO Q6H 03/17/23 05/23/23 tablet dexamethasone 2 mg tablet mg 06/21/23 Allergies Allergy/AdvReac Type Severity Reaction Status Date / Time Penicillins Allergy Unknown Deadly Verified 06/21/23 00:11 aspirin AdvReac Nausea Verified 06/21/23 00:11 Review of Systems Review of Systems: A 10 system review of systems was completed on the patient and is negative except for what is stated in the HPI. Nursing and ancillary documentation was reviewed. [facility] Past Medical History Medical History Absent kidney Arthritis Asthma Atrial fibrillation BMI 45.0-49.9, adult Cancer of kidney Cerebral hemorrhage Chronic low back pain Clear cell carcinoma of right kidney Depressive disorder Essential hypertension Fall with injury History of cardioversion Hypertensive heart disease with heart failure Moderate persistent asthma Morbid obesity Myocardial infarction Post concussion syndrome Rosacea Shortness of breath Sleep apnea Surgical History Surgical History History of arthroplasty of right ankle History of cardiac catheterization History of nephrectomy Hx of craniotomy Family History Family History Mother Family history of cardiovascular disease Patient's mother is in good health Father Family history of congestive heart failure Acute myocardial infarction Sibling Patient's sister is in good health Social History Social History Smoking packs per day: 0.5 Smoking cigarettes per day: 10.0 Years smoked: 1 Smoking pack-years: 0.50 Smoking status: Former smoker Tobacco type: cigarettes Smokeless tobacco user: chewing tobacco Second hand tobacco smoke exposure: No Smoking end date: 07/24/96 Alcohol intake: former Drinks per week: 2 Alcohol use details: rarely Substance use: never Substance use type: does not use Lack of Transportation: No Lack of Food: Never True Current Housing: I Have Housing Concerned About Future Housing: No Difficulty Paying Gas/Electric Bills: YES Difficulty Paying for Meds: YES Currently Unemployed: No Education: High School Diploma/GED Difficulty w/ Childcare or Family Care: No Living arrangements: alone Occupation/Education: unemployed Gender identity (if verbalized by the patient): Male Sexual Orientation (if Verbalized by the Patient): Straight or Heterosexual Spiritual care concerns: No Agree to blood products: Yes Exam Narrative: GENERAL: Well-appearing, well-nourished, and in no acute distress. HEAD: Normocephalic, atraumatic. EYES: PERRLA and EOMI. ENT: Nares clear, no rhinorrhea or epistaxis. Mucous membranes moist. NECK: Supple. CHEST: Clear to auscultation. No respiratory distress. HEART: Regular rate and rhythm. No murmur heard. Normal peripheral pulses. ABDOMEN: Soft, nontender, nondistended,
[2023-06-21 03:15] LABS: Reflex Lactic Acid Yes or No Add Lactic
[2023-06-21 05:23] LABS: Lactic Acid 4.3 mmol/L (0.7-2.0)
[2023-06-21] MEDS: SODIUM CHLORIDE 0.9% IV 1,000 ML 150 ML IV CONT (05:55)
--- NOTE | 2023-06-21 09:55 | PC.NURSE ---
[facility] transfer center given updated set of vitals, no bed at this time.
--- NOTE | 2023-06-21 11:28 | PC.NURSE ---
Patient assisted with urinal and repositioned. patient placed on an air mattress to assist with repositioning. call light in reach.
--- NOTE | 2023-06-21 11:29 | PC.NURSE ---
Call made to patient's legal guardian, Karoline, to get verbal consent for patient transfer.
--- NOTE | 2023-06-21 13:50 | PC.NURSE ---
Attempted to call POA about patient getting a bed at [facility]. This RN left a voicemail.
--- NOTE | 2023-06-21 14:18 | PC.NURSE ---
spoke to LG, concerned about pt having NA below 138.. states that surgeon asked for pt to not have NA <138 informed LG that we would pass this information on in report.
--- NOTE | 2023-06-21 14:20 | PC.NURSE ---
LG also reported that the pt is missing bottles of Zofran, pain Meds and Amiodarone. informed that we would look and update her if they were found
== END 2023-06-21 14:34 | disposition short-term general hospital (02) ==
PROVIDERS: Emergency Provider Emergency Medicine; PCP Family Medicine
DX: R56.9 Unspecified convulsions (principal); C71.9 Malignant neoplasm of brain, unspecified; G93.6 Cerebral edema; Z11.52 Encounter for screening for COVID-19; M19.90 Unspecified osteoarthritis, unspecified site; J45.909 Unspecified asthma, uncomplicated; I48.91 Unspecified atrial fibrillation; I11.0 Hypertensive heart disease with heart failure; I50.9 Heart failure, unspecified; I25.2 Old myocardial infarction; G47.30 Sleep apnea, unspecified
CPT/HCPCS: 36415; 70450; 71045; 72125; 80053; 81001; 83605; 83735; 84484; 85025; 85610; 85730; 87637; 93005; 96365; 96366; 96375; 99285; J1100; J1953; J7030

== ENCOUNTER 2023-06-30 12:18 | Outpatient (NON) | payer MEDICARE, MEDICAID, SELFPAY ==
[2023-06-30 13:51] LABS: Anion Gap 6 mmol/L (8-16); Blood Urea Nitrogen 23 mg/dL (9-20); Calcium 8.4 mg/dL (8.4-10.2); Carbon Dioxide 25 mmol/L (22-30); Chloride 99 mmol/L (98-107); Estimated Glomerular Filt Rate > 60; Glucose 263 mg/dL (65-110); Potassium 4.1 mmol/L (3.4-5.0); Sodium 130 mmol/L (137-145)
== END 2023-06-30 12:19 | disposition home or self-care (01) ==
PROVIDERS: PCP Family Medicine; Visit Provider Family Medicine
DX: C71.9 Malignant neoplasm of brain, unspecified (principal); R56.9 Unspecified convulsions; E87.1 Hypo-osmolality and hyponatremia
CPT/HCPCS: 80048

== ENCOUNTER 2023-07-05 12:31 | Outpatient (NON) | payer MEDICARE, MEDICAID, SELFPAY ==
[2023-07-05 14:14] LABS: Appearance Urine Clear (Clear); Bacteria Urine None Seen /hpf; Bilirubin Urine Negative (Negative); Blood Urine Negative (Negative); Color Urine Dark Yellow (Yellow); Glucose Urine UA 2+ mg/dL (Negative); Ketones Urine Trace mg/dL (Negative); Leukocyte Esterase Ur Negative LEU/UL (NEGATIVE); Need Manual Microscopic Reviewed; Nitrate Urine Negative (Negative); Non Pathogenic Casts 0-2; Protein Urine Trace mg/dL (Negative); Specific Grav Ur 1.037 (1.001-1.035); Squamous Epithelial Cell Urine None seen /hpf (Few)
[2023-07-05 14:15] LABS: Add Urine Microscopic? YES
== END 2023-07-05 12:32 | disposition home or self-care (01) ==
LOC: HOME HLTH 12:36
PROVIDERS: PCP Family Medicine; Visit Provider Family Medicine
DX: E87.1 Hypo-osmolality and hyponatremia (principal); N39.0 Urinary tract infection, site not specified; Z79.899 Other long term (current) drug therapy
CPT/HCPCS: 81001; 87086

== ENCOUNTER 2023-07-06 11:25 | Outpatient (NON) | payer MEDICARE, MEDICAID, SELFPAY ==
[2023-07-06 13:14] LABS: Anion Gap 7 mmol/L (8-16); Blood Urea Nitrogen 23 mg/dL (9-20); Calcium 8.4 mg/dL (8.4-10.2); Carbon Dioxide 27 mmol/L (22-30); Chloride 99 mmol/L (98-107); Estimated Glomerular Filt Rate > 60; Glucose 247 mg/dL (65-110); Sodium 133 mmol/L (137-145)
== END 2023-07-06 11:26 | disposition home or self-care (01) ==
LOC: HOME HLTH 11:28
PROVIDERS: PCP Family Medicine; Visit Provider Family Medicine
DX: E87.1 Hypo-osmolality and hyponatremia (principal); N39.0 Urinary tract infection, site not specified; Z79.899 Other long term (current) drug therapy
CPT/HCPCS: 80048

== ENCOUNTER 2023-07-10 07:16 | Emergency (ER) | payer MEDICARE, MEDICAID, SELFPAY ==
[2023-07-10] VITALS (44 sets, daily range): BP systolic 63–114; BP diastolic 34–97; PULSE 104–123; RESP 17–30; O2SAT 90–95
--- NOTE | ~2023-07-10 | XR_ITS ---
Portable chest x-ray Comparison: 06/21/2023 Clinical History: Chest pain Findings: There is probable large left pneumothorax with near complete left lung collapse. Possible small left pleural effusion present. Right lung clear. Cardiomediastinal silhouette is stable. Bones and soft tissues are unremarkable. Impression: Probable large left pneumothorax, with essentially complete left lung collapse. Possible small left pleural effusion. Case discussed with Dr. Goetz the time of this reading. Reviewed, dictated and finalized at location M. ONICS ENGINEERING TECHNOLOGIST Impression: Probable large left pneumothorax, with essentially complete left lung collapse. Possible small left pleural effusion. Case discussed with Dr. Goetz the time of this reading.
--- NOTE | 2023-07-10 07:36 | ED.SOB ---
HPI - SOB/Dyspnea General Chief Complaint: Shortness of Breath/Dyspnea Stated Complaint: weak/dyspnea Time Seen by Provider: 07/10/23 07:25 History of Present Illness HPI Narrative: Patient is a 58-year-old male who presents ER with weakness and shortness of breath. Patient reports some pleuritic chest pain to EMS. on arrival patient with absent breath sounds on the left side. Chest x-ray with left-sided pneumothorax. Patient's guardian reports patient has had a steady decline over the last couple weeks. He has been unable to swallow or use his left arm over the last 3 days. She would like patient to only be comfort care. Patient has had worsening of his brain tumor and has been accompanied by seizure and hyponatremia recently. Related Data Home Medications Medication Instructions Recorded Confirmed Florinef 0.1 mg PO DAILY 03/17/23 06/21/23 amiodarone 200 mg tablet 200 mg PO DAILY 06/21/23 06/21/23 montelukast 10 mg tablet 10 mg PO DAILY 06/21/23 06/21/23 dexamethasone 2 mg tablet 4 mg PO 07/05/23 fludrocortisone 0.1 mg tablet 0.1 mg PO DAILY 07/05/23 Allergies Allergy/AdvReac Type Severity Reaction Status Date / Time Penicillins Allergy Unknown Deadly Verified 07/10/23 12:46 Review of Systems Review of Systems: ROS unobtainable: Yes unobtainable due to mental status PMFSH Past Medical History Medical History Absent kidney Arthritis Asthma Atrial fibrillation BMI 45.0-49.9, adult Cancer of kidney Cerebral hemorrhage Chronic low back pain Clear cell carcinoma of right kidney Depressive disorder Essential hypertension Fall with injury History of cardioversion Hypertensive heart disease with heart failure Moderate persistent asthma Morbid obesity Myocardial infarction Post concussion syndrome Rosacea Shortness of breath Sleep apnea Surgical History Surgical History History of arthroplasty of right ankle History of cardiac catheterization History of nephrectomy Hx of craniotomy Family History Family History Mother Family history of cardiovascular disease Patient's mother is in good health Father Family history of congestive heart failure Acute myocardial infarction Sibling Patient's sister is in good health Social History Social History (Updated 07/10/23 @ 12:57 by Anastacio Delaney MD) Social History: Code Status: DNR Smoking packs per day: 0.5 Smoking cigarettes per day: 10.0 Years smoked: 1 Smoking pack-years: 0.50 Smoking status: Former smoker Tobacco type: cigarettes Smokeless tobacco user: chewing tobacco Second hand tobacco smoke exposure: No Smoking end date: 07/24/96 Alcohol intake: former Drinks per week: 2 Alcohol use details: rarely Substance use: never Substance use type: does not use Lack of Transportation: No Lack of Food: Never True Current Housing: I Have Housing Concerned About Future Housing: No Difficulty Paying Gas/Electric Bills: YES Difficulty Paying for Meds: YES Currently Unemployed: No Education: High School Diploma/GED Difficulty w/ Childcare or Family Care: No Living arrangements: alone Occupation/Education: unemployed Gender identity (if verbalized by the patient): Male Sexual Orientation (if Verbalized by the Patient): Straight or Heterosexual Spiritual care concerns: No Agree to blood products: Yes Exam Narrative: GENERAL: Chronically ill-appearing, morbidly obese, moderate distress. HEAD: Normocephalic, atraumatic. EYES: PERRL and EOMI. ENT: Mucous membranes moist. CHEST: mild wheezing in the right lung ruiz, left lung without air movement. Moderate respiratory distress. HEART: Tachycardic irregular. Normal peripheral pulses. ABDOMEN: Soft, nontender, nondistended. EXTREMITIES: Normal range of motion. No edema.
[2023-07-10] MEDS: MORPHINE SULFATE (*CRX) 4 MG/ML INJ 8 MG IV PUSH (07:38)
--- NOTE | 2023-07-10 07:48 | PC.NURSE ---
PARISH [place] called to give an update on pt condition obtain consent for chest tub. PARISH stated he is comfort measures only, no chest tubes . PARISH talked with dr Goetz on the phone, PARISH verbalized understanding of pt condition and conformed that pt is comfort measures only they do not want chest tubes. PARISH is ok with BI-pap.
[2023-07-10] MEDS: LORazepam INJ (*CRX) 2 MG/ML VIAL 1 MG IV PUSH ×2 (08:09→10:37)
--- NOTE | 2023-07-10 08:17 | PC.NURSE ---
Pt is alert and oriented x2, awake, talking, pt said he want to be comfort measure.
--- NOTE | 2023-07-10 09:12 | PCCCNOTE ---
After speaking with ED doctor and Karoline LUGO (sister) referral made to [facility]. and [facility] to meet at bedside in ED in approx 1 hour.
[2023-07-10] MEDS: MORPHINE SULFATE (*CRX) 4 MG/ML INJ IV PUSH ×2 (09:20→11:22)
--- NOTE | 2023-07-10 09:40 | PC.NURSE ---
Nurse from [facility] here to assess and pt to Hospice care. Waiting on POA to come too.
--- NOTE | 2023-07-10 09:57 | PC.NURSE ---
POA here to sign papers for [facility].
== END 2023-07-10 13:42 | disposition hospice, inpatient (51) ==
PROVIDERS: Emergency Provider Emergency Medicine; PCP Family Medicine
DX: D49.6 Neoplasm of unspecified behavior of brain (principal); J93.9 Pneumothorax, unspecified; I48.91 Unspecified atrial fibrillation; I11.0 Hypertensive heart disease with heart failure; I50.9 Heart failure, unspecified; I25.2 Old myocardial infarction; J45.30 Mild persistent asthma, uncomplicated; E66.01 Morbid (severe) obesity due to excess calories; Z68.39 Body mass index [BMI] 39.0-39.9, adult; M19.90 Unspecified osteoarthritis, unspecified site; Z96.651 Presence of right artificial knee joint; Z90.5 Acquired absence of kidney; Z87.891 Personal history of nicotine dependence; Z85.528 Personal history of other malignant neoplasm of kidney; Z79.4 Long term (current) use of insulin
CPT/HCPCS: 71045; 94002; 96374; 96375; 96376; 99285; C1729; J2060; J2270

== ENCOUNTER 2023-07-10 12:45 | HOS | payer OTHER, MEDICARE, MEDICAID, SELFPAY ==
--- NOTE | 2023-07-10 12:44 | ADMGEN ---
This patient, Jack Gates Jr., was admitted to [facility] Surg Room 318-01. Patient/family oriented to hospital policies and general routines including ID bracelet, bed and alarms, visiting hours, pain management, procedures, bathroom and other care routines, personal items, smoking policy, room service/diet, and visiting hours. Information on how to activate the Rapid Response Team has been discussed. Patient/Family are encouraged to report perceived risks to care and to ask questions if they do not understand what they are told or what they should do.
--- NOTE | 2023-07-10 12:56 | PM.IMHP ---
H&P: HPI History of Present Illness Date/Time: 07/10/23 12:56 Chief Complaint: uncontrolled dyspnea Narrative: 58 y/o male dx with gliobastoma in late January,. Tx with surgery, chemo, RT. After trial of rehab, went home to live with sister. At hat time his PPS was 60 and he needed assist with 5 of 6 ADL's. After hospital visits and seizures, he began to decline over the past several days. First he developed left arm weakness followed by increased confusion and dysphagia. He and his family did not desire a feeding tube. He was brought to [place] for admission to inpatient hospice due to uncontrolled dyspnea. At home he wears a CPAP due to [place]Y[place]. Review of Systems Review of Systems: ROS unobtainable: Yes unobtainable due to medical condition PMFSH Past Medical History Medical History Absent kidney Arthritis Asthma Atrial fibrillation BMI 45.0-49.9, adult Cancer of kidney Cerebral hemorrhage Chronic low back pain Clear cell carcinoma of right kidney Depressive disorder Essential hypertension Fall with injury History of cardioversion Hypertensive heart disease with heart failure Moderate persistent asthma Morbid obesity Myocardial infarction Post concussion syndrome Rosacea Shortness of breath Sleep apnea Surgical History Surgical History History of arthroplasty of right ankle History of cardiac catheterization History of nephrectomy Hx of craniotomy Family History Family History Mother Family history of cardiovascular disease Patient's mother is in good health Father Family history of congestive heart failure Acute myocardial infarction Sibling Patient's sister is in good health Social History Social History (Updated 07/10/23 @ 12:57 by Anastacio Delaney MD) Social History: Code Status: DNR Smoking packs per day: 0.5 Smoking cigarettes per day: 10.0 Years smoked: 1 Smoking pack-years: 0.50 Smoking status: Former smoker Tobacco type: cigarettes Smokeless tobacco user: chewing tobacco Second hand tobacco smoke exposure: No Smoking end date: 07/24/96 Alcohol intake: former Drinks per week: 2 Alcohol use details: rarely Substance use: never Substance use type: does not use Lack of Transportation: No Lack of Food: Never True Current Housing: I Have Housing Concerned About Future Housing: No Difficulty Paying Gas/Electric Bills: YES Difficulty Paying for Meds: YES Currently Unemployed: No Education: High School Diploma/GED Difficulty w/ Childcare or Family Care: No Living arrangements: alone Occupation/Education: unemployed Gender identity (if verbalized by the patient): Male Sexual Orientation (if Verbalized by the Patient): Straight or Heterosexual Spiritual care concerns: No Agree to blood products: Yes Meds Home Medications and Allergies Home Medications Medication Instructions Recorded Confirmed Type albuterol sulfate 90 mcg/actuation 2 puff inhalation Q4-6H PRN 02/25/22 06/21/23 Rx aerosol inhaler (ProAir HFA) shortness of breath or wheezing #8.5 grams Symbicort 160 mcg-4.5 See Rx Instructions .Route 09/21/22 06/21/23 Rx mcg/actuation HFA aerosol inhaler .COMPLEX #10.2 grams (budesonide-formoterol) Florinef 0.1 mg PO DAILY 03/17/23 06/21/23 History flash glucose scanning reader #1 ea 03/17/23 05/23/23 Rx (FreeStyle Juanita 2 [place]) flash glucose sensor (FreeStyle #1 ea 03/17/23 05/23/23 Rx Juanita 2 Sensor kit) B Complex-Vitamin B12 1,000 mcg PO 1XD #90 tabs 03/23/23 05/23/23 Rx famotidine 40 mg tablet 40 mg PO DAILY #90 tabs 04/17/23 06/21/23 Rx levetiracetam 500 mg tablet 1,000 mg PO Q12HR #180 tabs 04/26/23 06/21/23 Rx (Keppra) amiodarone 200 mg tablet 200 mg PO DAILY 06/21/23 06/21/23 History montelukast 10 mg tablet 10 mg PO DAILY 06/21/23 1
[2023-07-10 13:00] VITALS: BP 71/53; PULSE 116; RESP 22; TEMP 35.9; O2SAT 89
[2023-07-10] MEDS: MORPHINE SULFATE INJ (*CRX) 50 MG in SODIUM CHLORIDE 0.9% IV 95 ML 6 MG IV CONT (13:27)
[2023-07-10] MEDS: MORPHINE SULFATE (*CRX) 2 MG/ML INJ 6 MG IV PUSH (16:59)
[2023-07-10 17:03] VITALS: RESP 18
[2023-07-10] MEDS: LORazepam INJ (*CRX) 2 MG/ML VIAL 1 MG IV PUSH (17:13)
--- NOTE | 2023-07-10 22:16 | P.DN_ITS ---
Discharge Summary Date and Time Date of : 07/10/23 Time of : 17:30 Provider Pronounced By: Reyna Egan RN Probable Cause of Probable Cause of : Hypoxic respiratory failure due to gliobastoma. Summary Hospital Course: Admitted to inpatient hospice service due to uncontrolled dyspnea. Medications were titrated to comfort. Mr. Gates peacefully. Additional Data Confirmation of as documented by pronouncing clinician: Pupillary Reflex, Palpable Pulses, Response to Stimuli, Heart Tones and Breath Sounds Name of Provider Notified: Dr. Delaney Time Provider Notified: 17:47 Provider Requests Autopsy: No Family Requests Autopsy: No Marine Operations Coordinator Notified: Yes Date [facility] Notified of : 07/10/23 Time [facility] Notified of : 17:54
== END 2023-07-10 17:30 | disposition expired | DRG 951 ==
PROVIDERS: Admitting Provider Internal Medicine; PCP Family Medicine; Visit Provider Internal Medicine
DX: Z51.5 Encounter for palliative care (principal); C71.9 Malignant neoplasm of brain, unspecified; I48.20 Chronic atrial fibrillation, unspecified; I11.0 Hypertensive heart disease with heart failure; I50.9 Heart failure, unspecified; R06.00 Dyspnea, unspecified
CPT/HCPCS: A9270; J2060; J2270